=== PATIENT | male | born 1930 | race Caucasian/White ===

== ENCOUNTER 2018-05-10 18:02 | Emergency (ER) | payer MEDICARE, OTHER ==
[~2018-05-10] VITALS: Ht 195.6 cm; Wt 92.5 kg
--- NOTE | 2018-05-10 18:28 | ED EENT ---
History of Present Illness General Chief Complaint: Nasal Problems Stated Complaint: COUGH; RUNNY NOSE Nursing Triage Note: PT REPORTS HE HAS THE "SNIFFLES AND THE SHIVERS" SINCE YESTERDAY. DRAINIANGE IS CLEAR. NO OTHER COMPLAINTS. HE REPORTS HE IS NOT AWAER IF HE HAS HAD A FEVER BUT HE FEELS COLD. HAS NOT TRIED ANYTHING AT HOME. Source: patient Exam Limitations: no limitations History of Present Illness Date Seen by Provider: May 10, 2018 Time Seen by Provider: 18:23 Initial Comments Patient complains of sinus congestion, clear nasal discharge, chills and malaise for 2 days. He is concerned he is getting a "infection". He denies fevers. He did get a flu shot this year. Allergies and Home Medications Home Medications Azithromycin 250 Mg Tablet, 250 MG PO UD TAKE 2 TABLETS TODAY, THEN TAKE 1 TABLET DAILY FOR 4 MORE DAYS Prescribed by: YONY BYRNE on 05/10/18 1829 Patient Home Medication List Home Medication List Reviewed: Yes Review of Systems Review of Systems Constitutional: chills, malaise, weakness Eyes: No Symptoms Reported Ears: No Symptoms Reported Nose: congestion Throat: denies pain Respiratory: cough Cardiovascular: no symptoms reported Musculoskeletal: muscle pain Skin: no symptoms reported All Other Systems Reviewed Negative Unless Noted: Yes Past Uilubvm-Nnegjt-Tidlfu Hx Patient Social History Recent Foreign Travel: No Contact w/Someone Who Travel: No Recent Infectious Disease Expo: No Physical Abuse: No Sexual Abuse: No Mistreated: No Fear: No Past Medical History CABG Physical Exam Vital Signs Vital Signs - First Documented 05/10/18 18:16 Temp 99.5 Pulse 68 Resp 18 B/P (MAP) 167/80 (109) Pulse Ox 99 O2 Delivery Room Air Height, Weight, BMI Height: 6'5.00" Weight: 204lbs. oz. 92.906402jy; BMI Method:Stated General Appearance: WD/WN Eyes: bilateral eye normal inspection, bilateral eye PERRL, bilateral eye EOMI Ears: bilateral ear auricle normal, bilateral ear canal normal, bilateral ear TM normal Nose: discharge, sinus tenderness Mouth/Throat: normal mouth inspection, pharynx normal Neck: supple Cardiovascular: no murmur, irregularly irregular Respiratory: chest non-tender, lungs clear Gastrointestinal: non tender Neurologic/Psychiatric: alert, normal mood/affect Skin: normal color, warm/dry Progress/Results/Core Measures Results/Orders Vital Signs/I&O 05/10/18 18:16 Temp 99.5 Pulse 68 Resp 18 B/P (MAP) 167/80 (109) Pulse Ox 99 O2 Delivery Room Air Blood Pressure Mean: 109 Departure Impression Primary Impression: Sinusitis Disposition: 01 HOME, SELF-CARE Condition: Stable Departure-Patient Inst. Decision time for Depature: 18:27 Referrals: SHAHLA GARDNER MD (PCP/Family) Primary Care Physician Patient Instructions: Sinusitis in Adults Scripts Azithromycin (Zithromax) 250 Mg Tablet 250 MG PO UD, #6 TAB TAKE 2 TABLETS TODAY, THEN TAKE 1 TABLET DAILY FOR 4 MORE DAYS Prov: YONY BYRNE MD 05/10/18 YONY BYRNE MD May 10, 2018 18:28
[2018-05-10] MEDS ORDERED: AZIT250T PO (18:29)
[2018-05-10 18:39] VITALS: BP 167/80
== END 2018-05-10 18:37 | disposition short-term general hospital (02) ==
LOC: ER FS 18:05
DX: J32.9 Chronic sinusitis, unspecified (principal)
CPT/HCPCS: 99282

== ENCOUNTER 2018-07-29 15:58 | Emergency (ER) | payer MEDICARE, OTHER ==
[~2018-07-29] VITALS: Ht 195.6 cm; Wt 93.0 kg
[~2018-07-29 15:58] MED LIST: AZIT250T PO
--- OUTSIDE RECORDS SUMMARY | 2018-07-29 16:03 | XMS REPORT | Continuity of Care Document ---
Author Organization Unknown Address Unknown Allergies There is no data. Medications There is no data. Problems There is no data. Procedures There is no data. Results There is no data. Encounters ACCT No. Visit Date/Time Discharge Status Pt. Type Provider Facility Loc./Unit Complaint [id number] 07/11/2018 11:15:00 07/11/2018 23:59:59 [facility]
[2018-07-29] MEDS ORDERED: ATOR40TA70 (16:17)
[2018-07-29] MEDS ORDERED: XARELTO (16:17)
[2018-07-29 16:49] LABS: BASOPHILS % (AUTO) 1 % (0-10); EOSINOPHILS % (AUTO) 4 % (0-10); HEMATOCRIT 41 % (40-54); HEMOGLOBIN 13.8 G/DL (13.3-17.7); LYMPHOCYTES # (AUTO) 1.6 X 10^3 (1.0-4.0); LYMPHOCYTES % (AUTO) 41 % (12-44); MEAN CORPUSCULAR HEMOGLOBIN 33 PG (25-34); MEAN CORPUSCULAR HGB CONC 34 G/DL (32-36); MEAN CORPUSCULAR VOLUME 100 FL (80-99); MEAN PLATELET VOLUME 10.3 FL (7.4-10.4); MONOCYTES # (AUTO) 0.3 X 10^3 (0.0-1.0); MONOCYTES % (AUTO) 9 % (0-12); NEUTROPHILS # (AUTO) 1.7 X 10^3 (1.8-7.8); NEUTROPHILS % (AUTO) 45 % (42-75); PLATELET COUNT 101 10^3/uL (130-400); RED CELL DISTRIBUTION WIDTH 14.3 % (10.0-14.5); WHITE BLOOD COUNT 3.9 10^3/uL (4.3-11.0)
[2018-07-29 16:50] LABS: EOSINOPHILS # (AUTO) 0.2 10^3/uL (0.0-0.3)
--- NOTE | 2018-07-29 16:58 | Diagnostic Imaging Report ---
INDICATION: Indigestion. TECHNIQUE: Single-view chest at 4:34 p.m. CORRELATION STUDY: None. FINDINGS: Patient is post sternotomy. Cardiac enlargement with mild vascular congestion. Left-sided unipolar pacemaker tip near the cardiac apex inferiorly. Lung matthew appearing generally clear and without definitive consolidating infiltrate. No effusion or pneumothorax. Surgical clips project over the right lung apex. IMPRESSION: 1. Cardiac enlargement with component of mild vascular congestion. Dictated by: Dictated on workstation # [id number]
--- NOTE | 2018-07-29 17:02 | ED Chest Pain ---
General Chief Complaint: Chest Pain Stated Complaint: COLD SWEATS UPPER ABD/ CHEST PAIN THIS AM Nursing Triage Note: Had one episode of chest pain this morning at 0945 after eating biscuits and gravy. Pain was located in epigastric/sternal area and rated at 7/10. Pain lasted for 5 minutes. Has not had any pain since this morning. Has hx of 5 vessel bypass. Nursing Sepsis Screen: No Definite Risk Source: patient Exam Limitations: no limitations (RAMAKRISHNA HUTCHINSON DO) History of Present Illness Date Seen by Provider: July 29, 2018 Time Seen by Provider: 17:30 Initial Comments Patient is a 88-year-old male with history of CAD, CABG and pacemaker placement who presents with episodic mid abdominal pain this morning after eating biscuits gravies for breakfast. Patient states symptoms began 30 minutes after he finished eating. Reports dull aching pain in mid abdomen enlisting approximately 5 minutes associated with sweats. Pain did not radiate into his chest. Patient denies chest pain, arm shoulder neck or jaw pain. Symptoms were nonexertional. Patient then felt fatigued afterwards and went home and slept for 2 hours. Upon waking, symptoms resolved. However, the patient thought it might be a good idea to get checked out in the emergency department to see if he had a heart attack. 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: No Associated Symptoms: diaphoresis, fatigue, heartburn (RAMAKRISHNA HUTCHINSON DO) Allergies and Home Medications Allergies Coded Allergies: No Known Drug Allergies (Unverified , 07/29/18) Home Medications Azithromycin 250 Mg Tablet, 250 MG PO UD TAKE 2 TABLETS TODAY, THEN TAKE 1 TABLET DAILY FOR 4 MORE DAYS Prescribed by: YONY BYRNE on 05/10/18 5009 Patient Home Medication List Home Medication List Reviewed: Yes (RAMAKRISHNA HUTCHINSON DO) Review of Systems Review of Systems Constitutional: see HPI EENTM: See HPI Respiratory: See HPI Cardiovascular: See HPI Gastrointestinal: See HPI Genitourinary: See HPI Musculoskeletal: see HPI Skin: see HPI Psychiatric/Neurological: See HPI Endocrine: See HPI Hematologic/Lymphatic: See HPI (RAMAKRISHNA HUTCHINSON DO) Past Ihxwvpv-Xyfgka-Flwltu Hx Past Med/Social Hx: Reviewed Nursing Past Med/Soc Hx (RAMAKRISHNA HUTCHINSON DO) Patient Social History Alcohol Use: Denies Use Recreational Drug Use: No Smoking Status: Never a Smoker 2nd Hand Smoke Exposure: No Recent Foreign Travel: No Contact w/Someone Who Travel: No Recent Infectious Disease Expo: No Recent Hopitalizations: No Physical Abuse: No Sexual Abuse: No Mistreated: No Fear: No (RAMAKRISHNA HUTCHINSON DO) Immunizations Up To Date Tetanus Booster (TDap): Unknown (RAMAKRISHNA HUTCHINSON DO) Seasonal Allergies Seasonal Allergies: No (RAMAKRISHNA HUTCHINSON DO) Past Medical History Surgeries: Yes (5 vessel CABG; ) CABG, Pacemaker Respiratory: No Cardiac: Yes Atrial Fibrillation, High Cholesterol, Irregular Heartbeat Neurological: No Sexually Transmitted Disease: No HIV/AIDS: No Genitourinary: No Gastrointestinal: No Musculoskeletal: Yes Back Injury, Chronic Back Pain Endocrine: No HEENT: No Cancer: No Psychosocial: No Integumentary: No Blood Disorders: No (RAMAKRISHNA HUTCHINSON DO) Physical Exam Vital Signs Vital Signs - First Documented 07/29/18 07/29/18 16:05 19:16 Temp 97.7 Pulse 83 Resp 16 B/P (MAP) 151/99 (116) Pulse Ox 97 O2 Delivery Room Air (CAIT NOGUEIRA MD) Vital Signs Capillary Refill : Less Than 3 Seconds (RAMAKRISHNA HUTCHINSON DO) Height, Weight, BMI Height: 6'5.00" Weight: 205lbs. oz. 92.863077gd; BMI Method:Stated General Appearance: No Apparent Distress, WD/WN HEENT: PERRL/EOMI, Normal ENT Inspection, Pharynx Normal Neck: Full Range of Motion, Supple Respiratory: Lungs Clear, Normal Breath Sounds Gastrointestinal: Normal Bowel Sounds, Non Tender, Soft Extremity: Normal Capillary Refill, Non Tender; No Pedal Edema Neurologic/Psychiatric: Alert, No Motor/Sensory Deficits, Normal Mood/Affect ( RAMAKRISHNA HUTCHINSON DO) Focused Exam Sepsis Stage: Ruled Out (RAMAKRISHNA HUTCHINSON DO) Progress/Results/Core Measures Results/Orders Lab Results Laboratory Tests Test 07/29/18 16:18 07/29/18 18:26 Range/Units White Blood Count 3.9 L 4.3-11.0 10^3/uL Red Blood Count 4.12 L 4.35-5.85 10^6/uL Hemoglobin 13.8 13.3-17.7 G/DL Hematocrit 41 40-54 % Mean Corpuscular Volume 100 H 80-99 FL Mean Corpuscular Hemoglobin 33 25-34 PG Mean Corpuscular Hemoglobin Concent 34 32-36 G/DL Red Cell Distribution Width 14.3 10.0-14.5 % Platelet Count 101 L 130-400 10^3/uL Mean Platelet Volume 10.3 7.4-10.4 FL Neutrophils (%) (Auto) 45 42-75 % Lymphocytes (%) (Auto) 41 12-44 % Monocytes (%) (Auto) 9 0-12 % Eosinophils (%) (Auto) 4 0-10 % Basophils (%) (Auto) 1 0-10 % Neutrophils # (Auto) 1.7 L 1.8-7.8 X 10^3 Lymphocytes # (Auto) 1.6 1.0-4.0 X 10^3 Monocytes # (Auto) 0.3 0.0-1.0 X 10^3 Eosinophils # (Auto) 0.2 0.0-0.3 10^3/uL Basophils # (Auto) 0.0 0.0-0.1 10^3/uL Sodium Level 142 135-145 MMOL/L Potassium Level 4.5 3.6-5.0 MMOL/L Chloride Level 106 98-107 MMOL/L Carbon Dioxide Level 23 21-32 MMOL/L Anion Gap 13 5-14 MMOL/L Blood Urea Nitrogen 21 H 7-18 MG/DL Creatinine 1.21 0.60-1.30 MG/DL Estimat Glomerular Filtration Rate 57 BUN/Creatinine Ratio 17 Glucose Level 102 70-105 MG/DL Calcium Level 9.2 8.5-10.1 MG/DL Corrected Calcium 9.3 8.5-10.1 MG/DL Total Bilirubin 1.1 H 0.1-1.0 MG/DL Aspartate Amino Transf (AST/SGOT) 35 H 5-34 U/L Alanine Aminotransferase (ALT/SGPT) 22 0-55 U/L Alkaline Phosphatase 109 40-136 U/L Troponin T 31 H 27 H <=15 NG/L Pro-B-Type Natriuretic Peptide 1281.0 H <75.0 PG/ML Total Protein 6.8 6.4-8.2 GM/DL Albumin 3.9 3.2-4.5 GM/DL Lipase 12 8-78 U/L (CAIT NOGUEIRA MD) My Orders Orders - CAIT NOGUEIRA MD Troponin T (07/29/18 18:18) (CAIT NOGUEIRA MD) Medications Given in ED Current Medications Medications Dose Ordered Sig/Azar Route Start Time Stop Time Status Last Admin Dose Admin Furosemide 40 mg ONCE ONCE IVP 07/29/18 17:45 07/29/18 17:46 DC 07/29/18 17:57 40 MG (CAIT NOGUEIRA MD) Vital Signs/I&O 07/29/18 07/29/18 16:05 19:16 Temp 97.7 98.4 Pulse 83 72 Resp 16 18 B/P (MAP) 151/99 (116) 136/45 (75) Pulse Ox 97 97 O2 Delivery Room Air (CAIT NOGUEIRA MD) Blood Pressure Mean: 116 Progress Progress Note #1: Time: 18:00 Progress Note I assumed care of the patient from Dr. Hutchinson at shift change. Plan to get repeat Troponin at 2 hours which is now and if still negative then anticipate discharge to home with close follow up with clinic unless pt has new symptoms or concerns. Progress Note #2: Time: 19:00 Progress Note Repeat Troponin T is lower than the first one. Pt still without any further symptoms. Sounds more like he had indigestion from eating a large meal and with it being over 10 hours ago will have him recheck with pcp, Dr. Gardner, and see if she can get him rechecked with local cardiology. Counseled to not eat such large rich meals in the future. Return for worsening symptoms or if having more problems/concerns. (CAIT NOGUEIRA MD) Departure Communication (Admissions) EKG: Paced rhythm. Patient remains asymptomatic in the emergency department and normotensive. Labs reviewed. A&P elevated, with cardiomegaly on chest x-ray. Patient states that hypoxic and has clear breath sounds. Troponin is also marginally elevated. Patient recommended for further cardiac evaluation and treatment. Patient states he prefers to go home and wishes to follow up with his PCP and personal banking advisor as an outpatient. Lasix and aspirin given. Will repeat troponin in 2 hours with potential disposition home pending lab results and clinical symptoms. Care will be endorsed oncoming ERP at 1800. (RAMAKRISHNA HUTCHINSON DO) Impression Primary Impression: Abdominal pain Qualified Codes: R10.13 - Epigastric pain Additional Impression: Congestive heart failure Qualified Codes: I50.9 - Heart failure, unspecified Disposition: 01 HOME, SELF-CARE Condition: Stable Departure-Patient Inst. Decision time for Depature: 19:11 (CAIT NOGUEIRA MD) Referrals: SHAHLA GARDNER MD (PCP/Family) Primary Care Physician Patient Instructions: Gastritis (DC), High Blood Pressure (DC) Add. Discharge Instructions: Continue on your regular medicines. Follow up with Dr. Gardner in the clinic, This week or at next available appointment to discuss this episode of epigastric /upper abdominal pain. She may want you to get established with local Waste Recycler since Dr. Simmons is retiring at [place]. Return or seek medical care immediately if having worsening symptoms or more problems. All discharge instructions reviewed with patient and/or family. Voiced understanding. RAMAKRISHNA HUTCHINSON DO July 29, 2018 17:02 CAIT NOGUEIRA MD July 29, 2018 18:32
[2018-07-29 17:05] LABS: CREATININE SERUM 1.21 MG/DL (0.60-1.30); POTASSIUM 4.5 MMOL/L (3.6-5.0)
[2018-07-29 17:06] LABS: ALBUMIN 3.9 GM/DL (3.2-4.5); BILIRUBIN,TOTAL 1.1 MG/DL (0.1-1.0); CALCIUM 9.2 MG/DL (8.5-10.1); TOTAL PROTEIN 6.8 GM/DL (6.4-8.2)
[2018-07-29] MEDS ORDERED: FUROSEMIDE 40 MG/4 ML INJ (LASIX) IVP ONE (17:45)
[2018-07-29 19:16] VITALS: BP 136/45
== END 2018-07-29 19:16 | disposition home or self-care (01) ==
LOC: EDUNIT# 15:58 → ER FS 16:00
DX: R10.13 Epigastric pain (principal); I50.9 Heart failure, unspecified; I25.10 Atherosclerotic heart disease of native coronary artery without angina pectoris; I48.91 Unspecified atrial fibrillation; E78.00 Pure hypercholesterolemia, unspecified; Z95.1 Presence of aortocoronary bypass graft; Z95.0 Presence of cardiac pacemaker
CPT/HCPCS: 36415; 71045; 80053; 83690; 83880; 84484; 85025; 93005; 96374

== ENCOUNTER 2018-10-03 09:18 | Emergency (ER) | payer MEDICARE, OTHER ==
[~2018-10-03] VITALS: Ht 195.6 cm; Wt 97.5 kg
[~2018-10-03 09:18] MED LIST changes: +ATOR40TA70; +XARELTO
--- NOTE | 2018-10-03 10:06 | ED Lower Extremity ---
General Chief Complaint: Lower Extremity Stated Complaint: LT KNEE PAIN Nursing Triage Note: Pain started in left knee in the middle of the night. No known injury. Pain is worse with walking and rated at 7/10. Has not taken anything for pain. Also states his left big toe is red and has been for two days. Nursing Sepsis Screen: No Definite Risk History of Present Illness Date Seen by Provider: Oct 03, 2018 Time Seen by Provider: 09:55 Initial Comments Patient is an 88-year-old male who comes to the emergency department this morning complaining of pain in the left knee. He did not have any injury. He awoke this morning and states that he had onset of pain in the left knee which was initially worse then presently. He states the pain has improved since he has been walking. No fever or chills. He has been at baseline health with no other recent illness. He did not have this problem in the past. Allergies and Home Medications Allergies Coded Allergies: No Known Drug Allergies (Unverified , 07/29/18) Home Medications Azithromycin 250 Mg Tablet, 250 MG PO UD TAKE 2 TABLETS TODAY, THEN TAKE 1 TABLET DAILY FOR 4 MORE DAYS Prescribed by: YONY BYRNE on 05/10/18 1829 Patient Home Medication List Home Medication List Reviewed: Yes Review of Systems Constitutional: no symptoms reported Respiratory: no symptoms reported Cardiovascular: no symptoms reported Gastrointestinal: no symptoms reported Musculoskeletal: other (as documented above) Skin: no symptoms reported Past Dawldgz-Okkcff-Eqyylt Hx Patient Social History Alcohol Use: Denies Use Recreational Drug Use: No Smoking Status: Never a Smoker 2nd Hand Smoke Exposure: No Recent Foreign Travel: No Contact w/Someone Who Travel: No Recent Infectious Disease Expo: No Recent Hopitalizations: No Physical Abuse: No Sexual Abuse: No Mistreated: No Fear: No Immunizations Up To Date Tetanus Booster (TDap): Unknown Seasonal Allergies Seasonal Allergies: No Past Medical History Surgeries: Yes (5 vessel CABG; ) CABG, Pacemaker Respiratory: No Cardiac: Yes Atrial Fibrillation, High Cholesterol, Irregular Heartbeat Neurological: No Sexually Transmitted Disease: No HIV/AIDS: No Genitourinary: No Gastrointestinal: No Musculoskeletal: Yes Back Injury, Chronic Back Pain Endocrine: No HEENT: No Cancer: No Psychosocial: No Integumentary: No Blood Disorders: No Physical Exam Vital Signs Vital Signs - First Documented 10/03/18 09:23 Temp 97.5 Pulse 64 Resp 18 B/P (MAP) 118/71 (87) Pulse Ox 97 Capillary Refill : Less Than 3 Seconds Height, Weight, BMI Height: 6'5.00" Weight: 215lbs. oz. 97.282883eo; BMI Method:Stated General Appearance: WD/WN, no apparent distress HEENT: normal ENT inspection Neck: full range of motion Cardiovascular: regular rate, rhythm, systolic murmur Respiratory: lungs clear Knees: left knee other (no deformity of the left knee. No effusion. No warmth to touch. Patient has full free passive range of motion without pain. He does have crepitus palpable over the anterior aspect of the knee consistent with likely arthritis) Feet: left foot other (left great toenail is normal but the skin over the toe is mildly ecchymotic.) Progress/Results/Core Measures Results/Orders My Orders Orders - KANE MONK DO Foot 3 View Left (10/03/18 09:46) Knee 3 View Left (10/03/18 09:46) Acetaminophen Tablet (Tylenol Tablet) (10/03/18 10:45) Medications Given in ED Current Medications Medications Dose Ordered Sig/Azar Route Start Time Stop Time Status Last Admin Dose Admin Acetaminophen 1,000 mg ONCE ONCE PO 10/03/18 10:45 10/03/18 10:46 10/03/18 10:37 1,000 MG Vital Signs/I&O 10/03/18 10/03/18 09:23 10:36 Temp 97.5 97.5 Pulse 64 64 Resp 18 18 B/P (MAP) 118/71 (87) 118/71 (87) Pulse Ox 97 97 Blood Pressure Mean: 87 Progress Progress Note : Time: 09:55 Progress Note Patient is evaluated on arrival to his room. He does have complaints of pain of the left knee. The pain is specifically at the joint line on the lateral aspect of the knee. He did not have any trauma. Physical exam is fairly unremarkable other than some crepitus with passive range of motion which is most consistent with arthritis rather than any more acute pathology. No objective signs or symptoms of acute infectious process. The patient has a negative review of systems. He incidentally was noted to have some bruising over the left great toe as well. Patient states he is uncertain what happened and again denies any trauma. He has no pain over that toe. Examination of the toe does not real pain with palpation or manipulation. No local warmth to touch. Capillary refill is less than 2 seconds. The patient has 2+ dorsalis pedis pulses bilaterally with no edema. Plain film imaging is ordered of both the left foot and the left knee. 10:35: X-rays are reviewed and discussed with the patient. There are no acute findings. Only chronic changes. There is a small effusion in the area of concern of the left knee. Overall, there is no acute findings today suspicious for more acute pathology other than arthritis flare. Possibly friction injury to the left great toe. These are discussed with the patient. He is a poor candidate for NSAIDs because he takes Xarelto. He is encouraged to use Tylenol. Other possibilities such as developing cellulitis, gouty joint or septic joint are discussed with the patient and strict return precautions were also discussed. He does not have any questions prior to discharge. He is feeling improved. He will come back if he has any worsening symptoms. Departure Impression Primary Impression: Patellofemoral arthritis Additional Impression: Osteoarthritis Disposition: 01 HOME, SELF-CARE Condition: Improved Departure-Patient Inst. Referrals: SHAHLA GARDNER MD (PCP/Family) Primary Care Physician KANE MONK DO Oct 03, 2018 10:06
--- NOTE | 2018-10-03 10:22 | Diagnostic Imaging Report ---
Indication: Redness of the great toe, left foot. Time of exam: 9:47 AM 3 views of the left foot were obtained. The phalanges appear to be intact. There are degenerative changes at first MTP joint. Metatarsals are unremarkable. No fractures are seen. Midfoot and hindfoot are unremarkable apart from a plantar calcaneal spur. Impression: Chronic changes. No acute bony abnormality is detected. Dictated by: Dictated on workstation # [id number]
--- NOTE | 2018-10-03 10:22 | Diagnostic Imaging Report ---
INDICATION: Left knee pain. Time of exam 9:42 a.m. FINDINGS: Three views of the left knee were obtained. 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 Moderate patellofemoral and mild medial and lateral compartmental degenerative change. No fractures are seen. There may be a small amount of joint fluid present. IMPRESSION: Degenerative changes and small effusion. No acute bony abnormality is detected. Dictated by: Dictated on workstation # [id number]
[2018-10-03 10:36] VITALS: BP 118/71
[2018-10-03] MEDS ORDERED: ACETAMINOPHEN 500 MG TAB (TYLENOL) PO ONE (10:45)
--- OUTSIDE RECORDS SUMMARY | 2018-10-03 18:59 | XMS REPORT | Continuity of Care Document ---
Author Organization Unknown Address Unknown Allergies Active Description Code Type Severity Reaction Onset Reported/Identified Relationship to Patient Clinical Status Yes No Known Drug Allergies [id number] Drug Allergy Unknown N/A 07/29/2018 Medications There is no data. Problems Date Dx Coded Attending Type Code Diagnosis Diagnosed By 05/10/2018 YONY BYRNE MD, Ot J32.9 CHRONIC SINUSITIS, UNSPECIFIED 05/10/2018 YONY BYRNE MD Ot R05 COUGH 05/14/2018 YONY BYRNE MD, Ot J32.9 CHRONIC SINUSITIS, UNSPECIFIED 05/14/2018 YONY BYRNE MD Ot R05 COUGH 07/29/2018 CAIT NOGUEIRA MD Ot E78.00 PURE HYPERCHOLESTEROLEMIA, UNSPECIFIED 07/29/2018 CAIT NOGUEIRA MD Ot I25.10 ATHSCL HEART DISEASE OF [place] CORONARY 07/29/2018 CAIT NOGUEIRA MD Ot I48.91 UNSPECIFIED ATRIAL FIBRILLATION 07/29/2018 CAIT NOGUEIRA MD Ot I50.9 HEART FAILURE, UNSPECIFIED 07/29/2018 CAIT NOGUEIRA MD Ot R10.13 EPIGASTRIC PAIN 07/29/2018 CAIT NOGUEIRA MD Ot Z95.0 PRESENCE OF CARDIAC PACEMAKER 07/29/2018 CAIT NOGUEIRA MD Ot Z95.1 PRESENCE OF AORTOCORONARY BYPASS GRAFT 07/31/2018 CAIT NOGUEIRA MD Ot E78.00 PURE HYPERCHOLESTEROLEMIA, UNSPECIFIED 07/31/2018 CAIT NOGUEIRA MD Ot I25.10 ATHSCL HEART DISEASE OF [place] CORONARY 07/31/2018 CAIT NOGUEIRA MD Ot I48.91 UNSPECIFIED ATRIAL FIBRILLATION 07/31/2018 CAIT NOGUEIRA MD Ot I50.9 HEART FAILURE, UNSPECIFIED 07/31/2018 CAIT NOGUEIRA MD Ot R10.13 EPIGASTRIC PAIN 07/31/2018 CAIT NOGUEIRA MD Ot Z95.0 PRESENCE OF CARDIAC PACEMAKER 07/31/2018 CAIT NOGUEIRA MD, Ot Z95.1 PRESENCE OF AORTOCORONARY BYPASS GRAFT 08/04/2018 CAIT NOGUEIRA MD, Ot E78.00 PURE HYPERCHOLESTEROLEMIA, UNSPECIFIED 08/04/2018 CAIT NOGUEIRA MD, Ot I25.10 ATHSCL HEART DISEASE OF [place] CORONARY 08/04/2018 CAIT NOGUEIRA MD, Ot I48.91 UNSPECIFIED ATRIAL FIBRILLATION 08/04/2018 CAIT NOGUEIRA MD, Ot I50.9 HEART FAILURE, UNSPECIFIED 08/04/2018 CAIT NOGUEIRA MD, Ot R10.13 EPIGASTRIC PAIN 08/04/2018 CAIT NOGUEIRA MD, Ot Z95.0 PRESENCE OF CARDIAC PACEMAKER 08/04/2018 CAIT NOGUEIRA MD, Ot Z95.1 PRESENCE OF AORTOCORONARY BYPASS GRAFT Procedures There is no data. Results Test Result Range Complete blood count (CBC) with automated white blood cell (WBC) differential - 07/29/18 16:18 Blood leukocytes automated count (number/volume) 3.9 10*3/uL 4.3-11.0 Blood erythrocytes automated count (number/volume) 4.12 10*6/uL 4.35-5.85 Venous blood hemoglobin measurement (mass/volume) 13.8 g/dL 13.3-17.7 Blood hematocrit (volume fraction) 41 % 40-54 Automated erythrocyte mean corpuscular volume 100 [foz_us] 80-99 Automated erythrocyte mean corpuscular hemoglobin (mass per erythrocyte) 33 pg 25-34 Automated erythrocyte mean corpuscular hemoglobin concentration measurement (mass/volume) 34 g/dL 32-36 Automated erythrocyte distribution width ratio 14.3 % 10.0- 14.5 Automated blood platelet count (count/volume) 101 10*3/uL 130-400 Automated blood platelet mean volume measurement 10.3 [foz_us] 7.4-10.4 Automated blood neutrophils/100 leukocytes 45 % 42-75 Automated blood lymphocytes/100 leukocytes 41 % 12-44 Blood monocytes/100 leukocytes 9 % 0-12 Automated blood eosinophils/100 leukocytes 4 % 0-10 Automated blood basophils/100 leukocytes 1 % 0-10 Blood neutrophils automated count (number/volume) 1.7 10*3 1.8-7.8 Blood lymphocytes automated count (number/volume) 1.6 10*3 1.0-4.0 Blood monocytes automated count (number/volume) 0.3 10*3 0.0- 1.0 Automated eosinophil count 0.2 10*3/uL 0.0-0.3 Automated blood basophil count (count/volume) 0.0 10*3/uL 0.0-0.1 Comprehensive metabolic panel - 07/29/18 16:18 Serum or plasma sodium measurement (moles/volume) 142 mmol/L 135-145 Serum or plasma potassium measurement (moles/volume) 4.5 mmol/L 3.6-5.0 Serum or plasma chloride measurement (moles/volume) 106 mmol/L 98-107 Carbon dioxide 23 mmol/L 21-32 Serum or plasma anion gap determination (moles/volume) 13 mmol/L 5-14 Serum or plasma urea nitrogen measurement (mass/volume) 21 mg/dL 7-18 Serum or plasma creatinine measurement (mass/volume) 1.21 mg/dL 0.60-1.30 Serum or plasma urea nitrogen/creatinine mass ratio 17 NRG Serum or plasma creatinine measurement with calculation of estimated glomerular filtration rate 57 NRG Serum or plasma glucose measurement (mass/volume) 102 mg/dL 70-105 Serum or plasma calcium measurement (mass/volume) 9.2 mg/dL 8.5-10.1 Serum or plasma total bilirubin measurement (mass/volume) 1.1 mg/dL 0.1-1.0 Serum or plasma alkaline phosphatase measurement (enzymatic activity/volume) 109 U/L 40-136 Serum or plasma aspartate aminotransferase measurement (enzymatic activity/volume) 35 U/L 5-34 Serum or plasma alanine aminotransferase measurement (enzymatic activity/volume) 22 U/L 0-55 Serum or plasma protein measurement (mass/volume) 6.8 g/dL 6.4-8.2 Serum or plasma albumin measurement (mass/volume) 3.9 g/dL 3.2-4.5 CALCIUM CORRECTED 9.3 mg/dL 8.5-10.1 TROPONIN T - 07/29/18 16:18 TROPONIN T 31 % <=15 PROBNP FS - 07/29/18 16:18 PROBNP FS 1281.0 pg/mL <75.0 Lipase - 07/29/18 16:18 Lipase 12 U/L 8-78 TROPONIN T - 07/29/18 18:26 TROPONIN T 27 % <=15 Encounters ACCT No. Visit Date/Time Discharge Status Pt. Type Provider Facility Loc./Unit Complaint [id number] 08/29/2018 09:00:00 08/29/2018 23:59:59 [facility] [id number] 10/03/2018 09:19:00 10/03/2018 10:44:00 DIS Emergency KANE MONK DO [facility] FS LT KNEE PAIN [id number] 07/29/2018 16:00:00 07/29/2018 19:16:00 DIS Emergency JERO ROWLAND, CAIT Boo [facility] FS COLD SWEATS UPPER ABD/ CHEST PAIN THIS AM [id number] 05/10/2018 18:05:00 05/10/2018 18:37:00 DIS Emergency CATY ROWLAND, YONY Nino [facility] FS COUGH; RUNNY NOSE
== END 2018-10-03 10:44 | disposition home or self-care (01) ==
LOC: EDUNIT# 09:18 → ER FS 09:19
DX: M17.12 Unilateral primary osteoarthritis, left knee (principal); E78.00 Pure hypercholesterolemia, unspecified; I48.91 Unspecified atrial fibrillation; Z95.0 Presence of cardiac pacemaker; Z95.1 Presence of aortocoronary bypass graft
CPT/HCPCS: 73562; 73630

== ENCOUNTER 2018-11-20 10:18 | Emergency (ER) | payer MEDICARE, OTHER ==
[~2018-11-20] VITALS: Ht 196.8 cm; Wt 97.5 kg
--- NOTE | 2018-11-20 10:43 | ED General ---
General Chief Complaint: General Problems/Pain Stated Complaint: BLEEDING IN MOUTH Source of Information: Patient History of Present Illness Date Seen by Provider: Nov 20, 2018 Time Seen by Provider: 10:42 Initial Comments 88-year-old male presenting with complaints of sores that will not heal on his left forearm and right elbow. He also has a spot on side of his tongue that he keeps catching on his teeth. He has a jagged tooth on the right side that is broken. This is been that way for a long time but he is concerned that he might have cancer. He denies having any pain. He has no fever or chills. He has had these for a while but keeps forgetting to bring the month or come be seen about thumb. He happened to be in town and was thinking about them so he came to be seen. Dr. Gardner was not in the office so he came to the emergency department. He wanted to see about having them cut out and checked for cancer. Allergies and Home Medications Patient Home Medication List Home Medication List Reviewed: Yes Review of Systems Review of Systems Constitutional: see HPI EENTM: see HPI Respiratory: no symptoms reported Cardiovascular: no symptoms reported Gastrointestinal: no symptoms reported Genitourinary: no symptoms reported Musculoskeletal: no symptoms reported Skin: see HPI Past Cxsarnk-Hnqhoo-Gnncat Hx Past Med/Social Hx: Reviewed Nursing Past Med/Soc Hx Patient Social History Recent Foreign Travel: No Contact w/Someone Who Travel: No Physical Exam Vital Signs Vital Signs - First Documented 11/20/18 10:35 Temp 97.0 Pulse 85 Resp 16 B/P (MAP) 145/98 (114) Pulse Ox 100 O2 Delivery Room Air Capillary Refill : Height, Weight, BMI Height: '" Weight: lbs. oz. kg; BMI Method: General Appearance: No Apparent Distress, WD/WN HEENT: PERRL/EOMI, Other (bruising and hematoma to the right underside of the tongue where it has scraped against his teeth) Neck: Full Range of Motion, Normal Inspection, Non Tender, Supple Respiratory: Chest Non Tender, Lungs Clear, Normal Breath Sounds Cardiovascular: Regular Rate, Rhythm Extremity: Normal Capillary Refill, Normal Range of Motion, Non Tender Neurologic/Psychiatric: Alert, Oriented x3 Skin: Warm/Dry, Other (tanned skin. small 3 mm diameter bleeding lesion on left mid forearm without surrounding erythema or fluctuance. indurated swollen area on right elbow without fluctuance) Progress/Results/Core Measures Suspected Sepsis SIRS Temperature: Pulse: Respiratory Rate: Blood Pressure / Mean: Results/Orders Vital Signs/I&O 11/20/18 10:35 Temp 97.0 Pulse 85 Resp 16 B/P (MAP) 145/98 (114) Pulse Ox 100 O2 Delivery Room Air Capillary Refill : Progress Note : Progress Note Counseled patient that to be able to perform a biopsy to check for cancer or would need to be done through the clinic so he can follow up with somebody about the results of the pathology. When he was informed of this he was interested in going to the clinic. The clinic was contacted and they had an appointment to be able to see him at 11:20 AM. He was discharged shortly before 11 AM and sent to the clinic so he can be seen. Departure Impression Primary Impression: Non-healing skin lesion Disposition: HOME, SELF-CARE Condition: Stable Departure-Patient Inst. Decision time for Depature: 11:06 Referrals: SHAHLA GARDNER MD (PCP/Family) Primary Care Physician Patient Instructions: Skin Lesion Removal (DC) Add. Discharge Instructions: Check with clinic to see if they can do a biopsy of the spots on your arms to check for skin cancer or see what is causing them to not heal All discharge instructions reviewed with patient and/or family. Voiced understanding. CAIT NOGUEIRA MD Nov 20, 2018 10:42
[2018-11-20 11:10] VITALS: BP 145/98
== END 2018-11-20 11:10 | disposition home or self-care (01) ==
LOC: ER FS 10:21 → MERGE 10:21 → ER FS 11:10
DX: L98.9 Disorder of the skin and subcutaneous tissue, unspecified (principal)
CPT/HCPCS: 99281

== ENCOUNTER → 2018-12-30 | Outpatient (CLI) | payer MEDICARE, OTHER ==
--- NOTE | 2018-12-30 14:08 | Diagnostic Imaging Report ---
INDICATION: Pain. COMPARISON: None available. TECHNIQUE: Four radiographs of the right femur are dated 12/30/2018. FINDINGS: Surgical clips are present within the soft tissues medial to the right femur. No acute fracture or dislocation. No destructive osseous process. Moderate medial and lateral joint space narrowing of the knee is identified with associated tricompartmental osteophytosis. 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 Mild degenerative changes of the right hip. The right femoral head maintains normal shape and contour. Moderate scattered vascular calcifications. IMPRESSION: No acute osseous abnormality with scattered degenerative changes, greatest involving the right knee. 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 Additional post surgical and chronic findings as above. Dictated by: Dictated on workstation # [id number]
== END ==
LOC: RAD FS 13:48
PROVIDERS: ATTEND Nurse Practitioner Family
DX: M17.11 Unilateral primary osteoarthritis, right knee (principal); M79.651 Pain in right thigh
CPT/HCPCS: 73552

== ENCOUNTER → 2019-01-09 | Outpatient (CLI) | payer MEDICARE, OTHER ==
[2019-01-09 10:07] LABS: BUN/CREATININE RATIO 19; CREATININE SERUM 1.13 MG/DL (0.60-1.30); GFR ESTIMATED > 60
== END ==
LOC: LAB FS 09:11
PROVIDERS: ATTEND Family Medicine
DX: M79.89 Other specified soft tissue disorders (principal)
CPT/HCPCS: 36415; 82565; 84520

== ENCOUNTER → 2019-01-09 | Outpatient (CLI) | payer MEDICARE, OTHER ==
[~2019-01-09] MED LIST changes: +CATHETER FLUSH 10 ML SYR IV PRN; +HOLD METFORMIN - RECEIVED CONTRAST 20 ML VIAL IV SCH; +IOHEXOL 350 MG/ML 100 ML (OMNIPAQUE 350) VIAL IV ONE; +NS 100 ML (IVPB) BAG IV ONE
--- NOTE | 2019-01-09 12:38 | Diagnostic Imaging Report ---
PROCEDURE: CT right lower extremity with contrast. TECHNIQUE: Multiple contiguous axial CT images of the right extremity were obtained after intravenous administration of iodinated contrast. Auto Exposure Controls were utilized during the CT exam to meet ALARA standards for radiation dose reduction. INDICATION: Thigh swelling for five days. COMPARISON: Radiographs from 12/30/2018. FINDINGS: No acute fracture is seen in the imaged portions of the right femur. Alignment is normal. There are moderate degenerative changes in the right acromioclavicular joint. No cortical erosions are seen. No significant periosteal reaction is seen. There is a rim-enhancing heterogeneous fluid collection which abuts the medial cortex of the right mid femur, measuring up to 4.5 cm transverse and 4.8 cm AP in greatest dimensions. This measures up to 13.5 cm craniocaudal. This is closely associated with the vastus intermedius and appears to underlie the vastus medialis. Also within the vastus intermedius anteriorly, there appears to be a second rim-enhancing fluid collection which measures up to 1.5 x 1.1 cm on axial imaging and 15.5 cm craniocaudal. No other rim-enhancing soft tissue fluid collections are seen in the right thigh. There is moderate deep fascial edema in the anterior compartment of the right thigh. No soft tissue gas is seen. There is mild subcutaneous edema about the right thigh. There is focal atrophy of the biceps femoris. Calcific atherosclerosis is seen. Multiple clips are noted in the superficial soft tissues medially. There is diverticulosis of the sigmoid colon without diverticulitis. The urinary bladder is decompressed. No free fluid is seen in the pelvis. There is a small right knee joint effusion. IMPRESSION: 1. Heterogeneous rim-enhancing fluid collection abutting the right femur predominantly involving the medial aspect of the vastus intermedius. This may represent a hematoma or abscess. A second smaller, but equally long, rim-enhancing fluid collection is seen in the anterior vastus intermedius as well. 2. Moderate deep soft tissue edema in the right thigh and mild superficial soft tissue edema. No soft tissue gas is seen. 3. No cortical erosion or periosteal reaction to suggest osteomyelitis. Dictated by: Dictated on workstation # [id number]
== END ==
LOC: RAD FS 09:13
PROVIDERS: ATTEND Nurse Practitioner Family
DX: M79.89 Other specified soft tissue disorders (principal)
CPT/HCPCS: 73701

== ENCOUNTER → 2019-04-07 | Outpatient (CLI) | payer MEDICARE, OTHER ==
[2019-04-07 11:23] LABS: HEMATOCRIT 43 % (40-54); HEMOGLOBIN 14.2 G/DL (13.3-17.7); MEAN CORPUSCULAR HEMOGLOBIN 33 PG (25-34); MEAN CORPUSCULAR HGB CONC 33 G/DL (32-36); MEAN CORPUSCULAR VOLUME 101 FL (80-99); RED CELL DISTRIBUTION WIDTH 13.3 % (10.0-14.5); WHITE BLOOD COUNT 6.2 10^3/uL (4.3-11.0)
[2019-04-07 11:24] LABS: BASOPHILS % (AUTO) 1 % (0-10); EOSINOPHILS # (AUTO) 0.5 10^3/uL (0.0-0.3); EOSINOPHILS % (AUTO) 7 % (0-10); LYMPHOCYTES # (AUTO) 1.7 X 10^3 (1.0-4.0); LYMPHOCYTES % (AUTO) 27 % (12-44); MEAN PLATELET VOLUME 10.4 FL (7.4-10.4); MONOCYTES # (AUTO) 0.5 X 10^3 (0.0-1.0); MONOCYTES % (AUTO) 8 % (0-12); NEUTROPHILS # (AUTO) 3.5 X 10^3 (1.8-7.8); NEUTROPHILS % (AUTO) 57 % (42-75); PLATELET COUNT 130 10^3/uL (130-400)
[2019-04-07 11:55] LABS: POTASSIUM 3.8 MMOL/L (3.6-5.0)
[2019-04-07 11:56] LABS: ALBUMIN 4.2 GM/DL (3.2-4.5); BILIRUBIN,TOTAL 1.1 MG/DL (0.1-1.0); CALCIUM 9.9 MG/DL (8.5-10.1); CREATININE SERUM 1.25 MG/DL (0.60-1.30); TOTAL PROTEIN 7.3 GM/DL (6.4-8.2)
--- NOTE | 2019-04-07 12:56 | Diagnostic Imaging Report ---
PROCEDURE: CT chest with contrast only. TECHNIQUE: Multiple contiguous axial images were obtained through the chest after administration of intravenous contrast. Auto Exposure Controls were utilized during the CT exam to meet ALARA standards for radiation dose reduction. INDICATION: Lump in the upper right chest/clavicle region. FINDINGS: There appears to be a bony destructive process involving the medial right clavicle. A portion of the medial right clavicle is no longer present. There is a fluid collection at the expected location with some peripheral enhancement measuring 6.2 x 3.1 cm. No gas within the collection is identified. There are changes of median sternotomy. The patient has a left chest wall cardiac pacemaker. No pericardial or pleural fluid is identified. The heart is enlarged. No definite axillary, hilar, or mediastinal lymphadenopathy is detected. No pulmonary infiltrates, nodules, or masses are seen. The upper abdomen does show some renal cortical scarring bilaterally. There are diffuse degenerative changes throughout the thoracic spine. IMPRESSION: The medial right clavicle is gone and replaced by an enhancing fluid collection. This could be on an infectious/inflammatory basis with osteomyelitis of the right clavicle and associated soft tissue abscess. No other significant abnormality is identified. Dictated by: Dictated on workstation # [id number]
--- NOTE | 2019-04-07 13:23 | Diagnostic Imaging Report ---
INDICATION: Pain. FINDINGS: There is ill-definition of the medial third of the right clavicle. There does appear to be some swelling over the right supraclavicular region. The heart size is upper limits. No gross overdistention of the vascularity. The lungs are clear. The sternal wires are midline. The pacemaker device is intact. IMPRESSION: 1. The ill-defined medial third right clavicle with likely regional swelling is better characterized on the separately performed CT. 2. Upper limits heart size without overt failure pattern or mariela pneumonia. Dictated by: Dictated on workstation # [id number]
== END ==
LOC: LAB FS 10:58
PROVIDERS: ATTEND Family Medicine
DX: E78.5 Hyperlipidemia, unspecified (principal); R22.2 Localized swelling, mass and lump, trunk; K52.9 Noninfective gastroenteritis and colitis, unspecified
CPT/HCPCS: 36415; 71046; 71260; 80053; 80061; 82274; 85025; 87015; 87045; 87046; 87324; 87449; 87899

== ENCOUNTER 2019-04-24 05:36 | Outpatient (CLI) | payer MEDICARE, OTHER ==
[~2019-04-24] VITALS: Ht 195.6 cm; Wt 100.0 kg
[~2019-04-24 05:36] MED LIST changes: -CATHETER FLUSH 10 ML SYR IV PRN; -HOLD METFORMIN - RECEIVED CONTRAST 20 ML VIAL IV SCH; -IOHEXOL 350 MG/ML 100 ML (OMNIPAQUE 350) VIAL IV ONE; -NS 100 ML (IVPB) BAG IV ONE
[2019-04-24] MEDS ORDERED: RIVA20TA PO (13:01)
[2019-04-24] MEDS ORDERED: MULT-1104 PO (13:01)
[2019-04-24] MEDS ORDERED: ZINC50TA58 PO (13:01)
[2019-04-24] MEDS ORDERED: ASPI-586 PO (13:01)
[2019-04-24] MEDS ORDERED: CALC-823 PO (13:02)
[2019-04-28] MEDS ORDERED: ATOR10TA66 PO (10:36)
== END 2019-04-24 13:08 | disposition home or self-care (01) ==
LOC: PREOP 05:36
PROVIDERS: ATTEND Surgery
DX: Z01.818 Encounter for other preprocedural examination (principal)

== ENCOUNTER 2019-05-09 10:26 | Emergency (ER) | payer MEDICARE, OTHER ==
[~2019-05-09] VITALS: Ht 196 cm; Wt 100.2 kg
[~2019-05-09 10:26] MED LIST changes: +ASPI-586 PO; +ATOR10TA66 PO; +CALC-823 PO; +MULT-1104 PO; +RIVA20TA PO; +ZINC50TA58 PO
--- NOTE | 2019-05-09 10:41 | ED EENT ---
History of Present Illness General Chief Complaint: Ear Problems Stated Complaint: LT EAR PAIN Source: patient History of Present Illness Date Seen by Provider: May 09, 2019 Time Seen by Provider: 10:41 Initial Comments 88-year-old male presenting with 3 months worth of pressure and fluid in his left ear. He has been able to suck fluid from his ear and sinuses into his throat. When he does that it is salty drainage and looks like mucus. He denies any fever or chills. He has not followed up through the clinic about that. Nothing is worse about it today, he just had some spare time and came to the emergency department. He has tried some ocap-[id number] sinus spray with little to no improvement. Allergies and Home Medications Allergies Coded Allergies: No Known Drug Allergies (Unverified , 07/29/18) Home Medications Aspirin 81 Mg Tablet.dr, 81 MG PO DAILY, (Reported) Atorvastatin Calcium 10 Mg Tablet, 10 MG PO HS, (Reported) Calcium Carbonate 500 Mg Tablet, 500 MG PO DAILY, (Reported) Multivit-Min/Folic/Vit K/Lycop 1 Each Tablet, 1 EACH PO DAILY, (Reported) Rivaroxaban 20 Mg Tablet, 20 MG PO DAILY, (Reported) Zinc 50 Mg Tablet, 50 MG PO DAILY, (Reported) Patient Home Medication List Home Medication List Reviewed: Yes Review of Systems Review of Systems Constitutional: No chills, No dizziness, No fever, No malaise Eyes: No Symptoms Reported Ears: See HPI; Denies Tinnitus, Denies Bloody Discharge; Clear Discharge (when he sucks it into his throat); Denies Purulent Discharge, Denies Serosanguinous Discharge Nose: no symptoms reported Mouth: no symptoms reported Throat: no symptoms reported Respiratory: no symptoms reported Cardiovascular: no symptoms reported Gastrointestinal: no symptoms reported Musculoskeletal: no symptoms reported Skin: no symptoms reported Neurological: No Symptoms Reported Past Bubzdge-Quefzl-Jzkiwn Hx Past Med/Social Hx: Reviewed Nursing Past Med/Soc Hx Patient Social History Alcohol Use: Denies Use Recreational Drug Use: No 2nd Hand Smoke Exposure: No Recent Hopitalizations: No Immunizations Up To Date Tetanus Booster (TDap): Unknown Date of Influenza Vaccine: Dec 16, 2018 Seasonal Allergies Seasonal Allergies: No Past Medical History Surgeries: Yes (shoulder, back sx, toes amputated) CABG Respiratory: No Cardiac: Yes Atrial Fibrillation Neurological: No Sexually Transmitted Disease: No HIV/AIDS: No Genitourinary: No Gastrointestinal: Yes Chronic Diarrhea Musculoskeletal: Yes Arthritis Endocrine: No HEENT: No Cancer: No Psychosocial: No Integumentary: No Blood Disorders: No Physical Exam Vital Signs Vital Signs - First Documented 05/09/19 10:37 Temp 36.2 Pulse 87 Resp 16 B/P (MAP) 131/91 (104) Pulse Ox 87 Height, Weight, BMI Height: 6'5.50" Weight: 215lbs. 0oz. 97.727421lj; 26.13 BMI Method:Stated General Appearance: WD/WN, no apparent distress Eyes: bilateral eye PERRL, bilateral eye EOMI Ears: left ear other (clear effusion present filling over half of his middle ear); bilateral ear auricle normal, bilateral ear canal normal, bilateral ear TM normal Mouth/Throat: normal mouth inspection, pharynx normal Neck: non-tender, full range of motion, supple, normal inspection Cardiovascular: normal peripheral pulses, regular rate, rhythm Respiratory: chest non-tender, lungs clear, normal breath sounds Neurologic/Psychiatric: alert, normal mood/affect, oriented x 3 Skin: normal color, warm/dry Progress/Results/Core Measures Results/Orders Vital Signs/I&O 05/09/19 10:37 Temp 36.2 Pulse 87 Resp 16 B/P (MAP) 131/91 (104) Pulse Ox 87 Progress Progress Note : Progress Note treat with z pack for possible sinus infection and ear infection. nasal steroid spray and encourage to follow up with ENT for definitive evaluation Departure Impression Primary Impression: Chronic serous otitis media of left ear Disposition: 01 HOME, SELF-CARE Condition: Stable Departure-Patient Inst. Decision time for Depature: 10:55 Referrals: SELENA RAJPUT MD, KATRINA M MD (PCP/Family) Primary Care Physician Patient Instructions: Serous Otitis Media (DC) Add. Discharge Instructions: Use the steroid nasal spray to try and get your ear to drain better. Follow up with Dr. Rajput or one of his associates at his clinic to further evaluate your fluid in the ear and sinuses. All discharge instructions reviewed with patient and/or family. Voiced understanding. Scripts Azithromycin (Azithromycin) 250 Mg Tablet 250 MG PO UD for 5 Days, #6 TAB 0 Refills TAKE 2 TABLETS ON DAY ONE THEN TAKE 1 TABLET DAILY FOR FOUR MORE DAYS Prov: CAIT NOGUEIRA MD 05/09/19 Fluticasone Propionate (Flonase Allergy Relief) 9.9 Ml [place].susp 2 SPRAY NS DAILY for 30 Days, #1 EACH 0 Refills 2 SPRAYS PER NOSTRIL DAILY X 2 DAYS THEN 1 SPRAY DAILY Prov: CAIT NOGUEIRA MD 05/09/19 CAIT NOGUEIRA MD May 09, 2019 10:41
[2019-05-09] MEDS ORDERED: AZIT250T12 PO (10:57)
[2019-05-09] MEDS ORDERED: FLUT9.9S NS (10:57)
[2019-05-09 10:59] VITALS: BP 131/91
== END 2019-05-09 10:59 | disposition home or self-care (01) ==
LOC: EDUNIT# 10:26 → ER FS 10:27
DX: H65.492 Other chronic nonsuppurative otitis media, left ear (principal); I48.91 Unspecified atrial fibrillation; Z79.82 Long term (current) use of aspirin; Z79.01 Long term (current) use of anticoagulants; Z95.1 Presence of aortocoronary bypass graft
CPT/HCPCS: 99282

== ENCOUNTER 2019-05-21 16:26 | Outpatient (RCR) | payer MEDICARE, OTHER ==
[~2019-05-21 16:26] MED LIST changes: +AZIT250T12 PO; +FLUT9.9S NS
== END 2019-08-19 | disposition home or self-care (01) ==
LOC: LAB 16:26
PROVIDERS: ATTEND Surgery
DX: K63.89 Other specified diseases of intestine (principal)
CPT/HCPCS: 87015; 87045; 87046; 87899

== ENCOUNTER 2020-02-28 11:45 | Emergency (ER) | payer MEDICARE, OTHER ==
--- NOTE | 2020-02-28 12:36 | Diagnostic Imaging Report ---
CHEST 1 VIEW AP/PA ONLY Indication: Shortness of breath and wheezing. Comparison: 04/07/2019 Findings: Unchanged cardiomegaly with left pectoral transvenous pacemaker. Chronic central vascular redistribution. No pulmonary consolidation or mass. Posterior lower lobes are poorly evaluated by portable radiography. Mild interlobular septal thickening may be present. Trace bilateral pleural effusions. IMPRESSION: Imaging features raise possibility of mild pulmonary edema with trace bilateral pleural effusions. Dictated by: Dictated on workstation # [id number]
--- NOTE | 2020-02-28 12:48 | ED Respiratory ---
General Chief Complaint: Respiratory Problems Stated Complaint: SOA Nursing Triage Note: patients presents with leg swelling, sob, cough, chest pain and wheezing. Denies temp. Is coughing up brown sputum. Source: patient History of Present Illness Date Seen by Provider: Feb 28, 2020 Time Seen by Provider: 12:44 Initial Comments 89-year-old male presenting with complaints of shortness of breath and leg swelling that has been getting worse over the last few weeks. He has noticed that the swelling in his legs goes down overnight. He denies any fever or chills. He has been coughing up some brown colored sputum. He has not been able to see his regular provider, Dr. Shahla Gardner, because of her office being closed due to COVID. He was concerned with the swelling and shortness of breath not improving over the last few weeks so he decided he needed to be seen. Since he had some time after yazidism this morning he decided to stop here at the emergency department. He has had some chest tightness at times as well. Allergies and Home Medications Allergies Coded Allergies: No Known Drug Allergies (Unverified , 07/29/18) Home Medications Aspirin 81 Mg Tablet.dr, 81 MG PO DAILY, (Reported) Atorvastatin Calcium 10 Mg Tablet, 10 MG PO HS, (Reported) Azithromycin 250 Mg Tablet, 250 MG PO UD TAKE 2 TABLETS ON DAY ONE THEN TAKE 1 TABLET DAILY FOR FOUR MORE DAYS Prescribed by: CAIT NOGUEIRA on 05/09/19 1057 Calcium Carbonate 500 Mg Tablet, 500 MG PO DAILY, (Reported) Fluticasone Propionate 9.9 Ml [place].susp, 2 SPRAY NS DAILY 2 SPRAYS PER NOSTRIL DAILY X 2 DAYS THEN 1 SPRAY DAILY Prescribed by: CAIT NOGUEIRA on 05/09/19 1057 Furosemide 20 Mg Tablet, 20 MG PO DAILY Prescribed by: CAIT NOGUEIRA on 02/28/20 1410 Multivit-Min/Folic/Vit K/Lycop 1 Each Tablet, 1 EACH PO DAILY, (Reported) Potassium Chloride 10 Meq Capsule.er, 10 MEQ PO DAILY Prescribed by: CAIT NOGUEIRA on 02/28/20 1410 Rivaroxaban 20 Mg Tablet, 20 MG PO DAILY, (Reported) Zinc 50 Mg Tablet, 50 MG PO DAILY, (Reported) Patient Home Medication List Home Medication List Reviewed: Yes Review of Systems Review of Systems Constitutional: No chills, No dizziness, No fever EENTM: no symptoms reported Respiratory: cough; No hemoptysis, No orthopnea; short of breath; No stridor; wheezing Cardiovascular: chest pain (tightness), edema Gastrointestinal: No nausea, No vomiting Genitourinary: no symptoms reported Musculoskeletal: no symptoms reported Skin: no symptoms reported Psychiatric/Neurological: No Symptoms Reported Hematologic/Lymphatic: Easy Bleeding (taking xarelto), Easy Bruising (taking xarelto) Past Qmherjt-Aeenvl-Stosri Hx Past Med/Social Hx: Reviewed Nursing Past Med/Soc Hx Patient Social History Alcohol Use: Denies Use Recreational Drug Use: No Smoking Status: Never a Smoker 2nd Hand Smoke Exposure: No Recent Foreign Travel: No Contact w/Someone Who Travel: No Recent Infectious Disease Expo: No Recent Hopitalizations: No Physical Abuse: No Sexual Abuse: No Mistreated: No Fear: No Immunizations Up To Date Tetanus Booster (TDap): Unknown Date of Influenza Vaccine: Dec 16, 2018 Seasonal Allergies Seasonal Allergies: No Past Medical History Surgeries: Yes (shoulder, back sx, toes amputated) CABG, Pacemaker Respiratory: No Cardiac: Yes Atrial Fibrillation Neurological: No Sexually Transmitted Disease: No HIV/AIDS: No Genitourinary: No Gastrointestinal: Yes Chronic Diarrhea Musculoskeletal: Yes Arthritis Endocrine: No HEENT: No Cancer: No Psychosocial: No Integumentary: No Blood Disorders: No Physical Exam Vital Signs - First Documented 02/28/20 12:15 Temp 35.4 Pulse 75 Resp 16 B/P (MAP) 170/81 (110) Pulse Ox 100 Capillary Refill : Less Than 3 Seconds Height: 6'5.50" Weight: 215lbs. 0oz. [id number]; 26.00 BMI Method:Stated General Appearance: WD/WN, no apparent distress HEENT: normal ENT inspection, pharynx normal Neck: non-tender, full range of motion, supple, normal inspection Respiratory: chest non-tender, no respiratory distress, no accessory muscle use, rales (bilateral bases of lungs) Cardiovascular: normal peripheral pulses, regular rate, rhythm Gastrointestinal: normal bowel sounds, soft, no pulsatile mass Extremities: normal range of motion, normal capillary refill, pedal edema (1+ BLE to knees) Neurologic/Psychiatric: dressage judge II-XII nml as tested, alert, normal mood/affect, oriented x 3 Skin: normal color, warm/dry Progress/Results/Core Measures Suspected Sepsis Recent Fever Within 48 Hours: No Infection Criteria Present: Suspected New Infection New/Unexplained Altered Menta: No Sepsis Screen: No Definite Risk SIRS Temperature: Pulse: 75 Respiratory Rate: 16 Laboratory Tests 02/28/20 12:21: White Blood Count 5.2 Blood Pressure 170 /81 Mean: 110 Laboratory Tests 02/28/20 12:21: Creatinine 1.16, INR Comment 1.7H, Platelet Count 157, Total Bilirubin 1.2H Results/Orders Lab Results Laboratory Tests Test 02/28/20 12:21 Range/Units White Blood Count 5.2 4.3-11.0 10^3/uL Red Blood Count 4.03 L 4.35-5.85 10^6/uL Hemoglobin 13.5 13.3-17.7 G/DL Hematocrit 40 40-54 % Mean Corpuscular Volume 100 H 80-99 FL Mean Corpuscular Hemoglobin 33 25-34 PG Mean Corpuscular Hemoglobin Concent 33 32-36 G/DL Red Cell Distribution Width 13.2 10.0-14.5 % Platelet Count 157 130-400 10^3/uL Mean Platelet Volume 10.4 7.4-10.4 FL Immature Granulocyte % (Auto) 0 % Neutrophils (%) (Auto) 54 42-75 % Lymphocytes (%) (Auto) 24 12-44 % Monocytes (%) (Auto) 8 0-12 % Eosinophils (%) (Auto) 14 H 0-10 % Basophils (%) (Auto) 0 0-10 % Neutrophils # (Auto) 2.8 1.8-7.8 X 10^3 Lymphocytes # (Auto) 1.2 1.0-4.0 X 10^3 Monocytes # (Auto) 0.4 0.0-1.0 X 10^3 Eosinophils # (Auto) 0.7 H 0.0-0.3 10^3/uL Basophils # (Auto) 0.0 0.0-0.1 10^3/uL Immature Granulocyte # (Auto) 0.0 0.0-0.1 10^3/uL Neutrophils % (Manual) 45 % Lymphocytes % (Manual) 34 % Monocytes % (Manual) 6 % Eosinophils % (Manual) 13 % Basophils % (Manual) 0 % Band Neutrophils 2 % Prothrombin Time 20.3 H 12.2-14.7 SEC INR Comment 1.7 H 0.8-1.4 Activated Partial Thromboplast Time 45 H 24-35 SEC Sodium Level 141 135-145 MMOL/L Potassium Level 4.1 3.6-5.0 MMOL/L Chloride Level 108 H 98-107 MMOL/L Carbon Dioxide Level 20 L 21-32 MMOL/L Anion Gap 13 5-14 MMOL/L Blood Urea Nitrogen 20 H 7-18 MG/DL Creatinine 1.16 0.60-1.30 MG/DL Estimat Glomerular Filtration Rate 59 BUN/Creatinine Ratio 17 Glucose Level 103 70-105 MG/DL Calcium Level 9.5 8.5-10.1 MG/DL Corrected Calcium 9.7 8.5-10.1 MG/DL Magnesium Level 1.8 1.6-2.4 MG/DL Total Bilirubin 1.2 H 0.1-1.0 MG/DL Aspartate Amino Transf (AST/SGOT) 25 5-34 U/L Alanine Aminotransferase (ALT/SGPT) 16 0-55 U/L Alkaline Phosphatase 166 H 40-136 U/L Troponin I < 0.30 <0.30 NG/ML Pro-B-Type Natriuretic Peptide 2522.0 H <75.0 PG/ML Total Protein 6.9 6.4-8.2 GM/DL Albumin 3.7 3.2-4.5 GM/DL My Orders Orders - CAIT NOGUEIRA MD Chest 1 View Ap/Pa Only (02/28/20 12:17) Cbc With Automated Diff (02/28/20 12:48) Magnesium (02/28/20 12:48) Ekg Tracing (02/28/20 12:48) Comprehensive Metabolic Panel (02/28/20 12:48) Protime With Inr (02/28/20 12:48) Partial Thromboplastin Time (02/28/20 12:48) O2 (02/28/20 12:48) Monitor-Rhythm Ecg Trace Only (02/28/20 12:48) Ed Iv/Invasive Line Start (02/28/20 12:48) Troponin I Fs (02/28/20 12:48) Probnp Fs (02/28/20 12:48) Manual Differential (02/28/20 12:21) Vital Signs/I&O 02/28/20 02/28/20 12:15 14:27 Temp 35.4 Pulse 75 63 Resp 16 20 B/P (MAP) 170/81 (110) 147/59 Pulse Ox 100 98 Capillary Refill : Less Than 3 Seconds Blood Pressure Mean: 110 Progress Note #1: Progress Note check labs with chest x-ray and electrocardiogram. With his concern for shortness of breath and having swelling also will obtain cardiac enzymes with BNP Progress Note #2: Progress Note chest x-ray shows small amount of effusion bilaterally. His EKG was paced with some PVCs. He has no acute significant abnormality on his CBC or chemistry except he does have an elevated BNP to go along with some heart failure consistent with his chest x-ray and physical exam of the edema in his lower extremities. advised patient of the findings and he stated that he had not been told he had heart failure before. However his oxygen saturation was 98-100% on room air. He was not working hard to breathe. Will have him try a low-dose of diuretic with potassium. Check with the clinic about obtaining an echocardiogram and possible cardiology consult. If worsens or not improving he may need inpatient treatment but for now the outpatient workup and possible medication treatment should be manageable. ECG Initial ECG Impression Date: Feb 28, 2020 Initial ECG Impression Time: 12:02 Initial ECG Rate: 63 Initial ECG Comparisson: No Previous ECG Available Comment paced rhythm with occasional PVCs. Heart rate of 63 beats for minute. QT interval 447 ms with a QTc interval 458 ms. There is no acute ST elevation. There is no prior tracing immediately available for comparison. Diagnostic Imaging Diagonstic Imaging: Xray Plain Films/CT/US/NM/MRI: chest Comments [facility] [place], [place] NAME: SUMAN[facility] REC#: [id number] PT STATUS: REG ER : 1930 PHYSICIAN: CAIT NOGUEIRA MD ADMIT DATE: 02/28/20/ER FS Signed Date of Exam:02/28/20 CHEST 1 VIEW AP/PA ONLY CHEST 1 VIEW AP/PA ONLY Indication: Shortness of breath and wheezing. Comparison: 04/07/2019 Findings: Unchanged cardiomegaly with left pectoral transvenous pacemaker. Chronic central vascular redistribution. No pulmonary consolidation or mass. Posterior lower lobes are poorly evaluated by portable radiography. Mild interlobular septal thickening may be present. Trace bilateral pleural effusions. IMPRESSION: Imaging features raise possibility of mild pulmonary edema with trace bilateral pleural effusions. Dictated by: Dictated on workstation # [id number] Dict: 02/28/20 1233 Trans: 02/28/20 1252 CVB [id number] Interpreted by: AMBAR STILES MD Electronically signed by: AMBAR STILES MD 02/28/20 1252 Departure Impression Primary Impression: Congestive heart failure Qualified Codes: I50.9 - Heart failure, unspecified Additional Impressions: Pedal edema Shortness of breath Disposition: HOME, SELF-CARE Condition: Stable Departure-Patient Inst. Decision time for Depature: 14:05 Referrals: SHAHLA GARDNER MD (PCP/Family) Primary Care Physician Patient Instructions: Shortness of Breath (Dyspnea) (DC), Heart Failure, Adult (DC) Add. Discharge Instructions: Take the water pill and potassium to help get the fluid off your lungs and legs. Check with Dr. Gardner over the phone to follow up with Cardiology and get an Echocardiogram and see if they want you to take any different medicine for your swelling and fluid on your lungs. All discharge instructions reviewed with patient and/or family. Voiced u nderstanding. Scripts Potassium Chloride (Potassium Chloride) 10 Meq Capsule.er 10 MEQ PO DAILY for 7 Days, #7 CAP 0 Refills Prov: CAIT NOGUEIRA MD 02/28/20 Furosemide (Furosemide) 20 Mg Tablet 20 MG PO DAILY for edema for 7 Days, #7 TAB 0 Refills Prov: CAIT NOGUEIRA MD 02/28/20 CAIT NOGUEIRA MD Feb 28, 2020 12:48
[2020-02-28 13:00] LABS: HEMATOCRIT 40 % (40-54); HEMOGLOBIN 13.5 G/DL (13.3-17.7); MEAN CORPUSCULAR HEMOGLOBIN 33 PG (25-34); MEAN CORPUSCULAR HGB CONC 33 G/DL (32-36); MEAN CORPUSCULAR VOLUME 100 FL (80-99); MEAN PLATELET VOLUME 10.4 FL (7.4-10.4); PLATELET COUNT 157 10^3/uL (130-400); WHITE BLOOD COUNT 5.2 10^3/uL (4.3-11.0)
[2020-02-28 13:01] LABS: BASOPHILS % (AUTO) 0 % (0-10); EOSINOPHILS # (AUTO) 0.7 10^3/uL (0.0-0.3); EOSINOPHILS % (AUTO) 14 % (0-10); LYMPHOCYTES # (AUTO) 1.2 X 10^3 (1.0-4.0); LYMPHOCYTES % (AUTO) 24 % (12-44); MONOCYTES # (AUTO) 0.4 X 10^3 (0.0-1.0); MONOCYTES % (AUTO) 8 % (0-12); NEUTROPHILS # (AUTO) 2.8 X 10^3 (1.8-7.8); NEUTROPHILS % (AUTO) 54 % (42-75)
[2020-02-28 13:06] LABS: INR 1.7 (0.8-1.4); PROTHROMBIN TIME PATIENT 20.3 SEC (12.2-14.7)
[2020-02-28 13:21] LABS: BILIRUBIN,TOTAL 1.2 MG/DL (0.1-1.0); CALCIUM 9.5 MG/DL (8.5-10.1); CREATININE SERUM 1.16 MG/DL (0.60-1.30); MAGNESIUM 1.8 MG/DL (1.6-2.4); POTASSIUM 4.1 MMOL/L (3.6-5.0)
[2020-02-28 13:22] LABS: ALBUMIN 3.7 GM/DL (3.2-4.5); TOTAL PROTEIN 6.9 GM/DL (6.4-8.2)
[2020-02-28 13:33] LABS: BAND NEUTROPHILS 2 %; BASOPHILS % (MANUAL) 0 %; EOSINOPHILS % (MANUAL) 13 %; LYMPHOCYTES % (MANUAL) 34 %; MONOCYTES % (MANUAL) 6 %; NEUTROPHILS % (MANUAL) 45 %
[2020-02-28] MEDS ORDERED: POTA10CA43 PO (14:10)
[2020-02-28] MEDS ORDERED: FURO20TA4 PO (14:10)
[2020-02-28 14:27] VITALS: BP 147/59
== END 2020-02-28 14:32 | disposition home or self-care (01) ==
LOC: EDUNIT# 11:45 → ER FS 11:47
DX: I50.9 Heart failure, unspecified (principal); R60.9 Edema, unspecified; R06.02 Shortness of breath; I48.91 Unspecified atrial fibrillation; Z95.1 Presence of aortocoronary bypass graft; Z95.0 Presence of cardiac pacemaker; Z79.82 Long term (current) use of aspirin; Z79.01 Long term (current) use of anticoagulants
CPT/HCPCS: 36415; 71045; 80053; 83735; 83880; 84484; 85007; 85027; 85610; 85730; 93005

== ENCOUNTER 2020-06-17 08:06 | Observation (INO) | payer MEDICARE, OTHER ==
[~2020-06-17] VITALS: Ht 195 cm; Wt 97.2 kg
[~2020-06-17 08:06] MED LIST changes: +ASPIRIN 81 MG CHEW (CHILDREN'S ASA) ONE; +FURO20TA4 PO; +NITROGLYCERIN 0.4 MG SL TABS BTL 25'S SL ONE; +POTA10CA43 PO
[2020-06-17] MEDS ORDERED: ASPIRIN 81 MG CHEW (CHILDREN'S ASA) PO ONE (08:15)
[2020-06-17] MEDS ORDERED: NITROGLYCERIN 0.4 MG SL TABS BTL 25'S SL PRN ×2 (08:15→12:45)
--- NOTE | 2020-06-17 08:25 | ED Chest Pain ---
General Stated Complaint: CP,SOB Source: patient Exam Limitations: no limitations History of Present Illness Date Seen by Provider: Jun 17, 2020 Time Seen by Provider: 08:03 Initial Comments The patient presents to the ER by private conveyance from home with chief complaint of chest pain left of the sternum, nonradiating 6 out of 10 pressure and pain unrelenting that woke him from sleep at 4:00 this morning. It has slowly tapered off. It is not worse with deep inspiration, palpation or exercise/walking. He had to take his daughter to dialysis and since his pain was persistent they told him to come to the ER. He has a history of four-vessel CABG followed by Out-of-town cardiology. Primary care by Dr. Gardner. He has a history of hyperlipidemia but denies hypertension or diabetes. He is not a smoker or drinker. He denies a history of heart burn/indigestion. He is not having any nausea sweats fevers chills cough but he does endorse shortness of air. He took 162 mg of aspirin and the rest of his morning medications before coming in. Allergies and Home Medications Allergies Coded Allergies: No Known Drug Allergies (Unverified , 07/29/18) Home Medications Aspirin 81 Mg Tablet.dr, 81 MG PO DAILY, (Reported) Atorvastatin Calcium 10 Mg Tablet, 10 MG PO HS, (Reported) Azithromycin 250 Mg Tablet, 250 MG PO UD TAKE 2 TABLETS ON DAY ONE THEN TAKE 1 TABLET DAILY FOR FOUR MORE DAYS Prescribed by: CAIT ALANIZRT on 05/09/19 1057 Calcium Carbonate 500 Mg Tablet, 500 MG PO DAILY, (Reported) Fluticasone Propionate 9.9 Ml [place].susp, 2 SPRAY NS DAILY 2 SPRAYS PER NOSTRIL DAILY X 2 DAYS THEN 1 SPRAY DAILY Prescribed by: CAIT ALANIZRT on 05/09/19 1057 Furosemide 20 Mg Tablet, 20 MG PO DAILY Prescribed by: CAIT ALANIZRT on 02/28/20 1410 Multivit-Min/Folic/Vit K/Lycop 1 Each Tablet, 1 EACH PO DAILY, (Reported) Potassium Chloride 10 Meq Capsule.er, 10 MEQ PO DAILY Prescribed by: CAIT ALANIZRT on 02/28/20 1410 Rivaroxaban 20 Mg Tablet, 20 MG PO DAILY, (Reported) Zinc 50 Mg Tablet, 50 MG PO DAILY, (Reported) Patient Home Medication List Home Medication List Reviewed: Yes Review of Systems Review of Systems Constitutional: No chills, No diaphoresis, No fever, No malaise EENTM: No Blurred Vision, No Double Vision Respiratory: Denies Cough; Shortness of Air Cardiovascular: See HPI, Chest Pain; Denies Edema; Irregular Heart Rate Gastrointestinal: Denies Abdominal Pain, Denies Diarrhea, Denies Nausea Genitourinary: Denies Burning, Denies Discharge Musculoskeletal: No back pain All Other Systems Reviewed Negative Unless Noted: Yes Past Efjrzem-Vwpobv-Xtegfw Hx Patient Social History Alcohol Use: Denies Use Drug of Choice: Denies Smoking Status: Never a Smoker 2nd Hand Smoke Exposure: No Recent Hopitalizations: No Immunizations Up To Date Tetanus Booster (TDap): Unknown Date of Influenza Vaccine: Dec 16, 2018 Seasonal Allergies Seasonal Allergies: No Past Medical History Surgeries: Yes (shoulder, back sx, toes amputated) CABG, Pacemaker Respiratory: No Cardiac: Yes Atrial Fibrillation Neurological: No Sexually Transmitted Disease: No HIV/AIDS: No Genitourinary: No Gastrointestinal: Yes Chronic Diarrhea Musculoskeletal: Yes Arthritis Endocrine: No HEENT: No Cancer: No Psychosocial: No Integumentary: No Blood Disorders: No Physical Exam Vital Signs Vital Signs - First Documented 06/17/20 08:06 Temp 37.0 Pulse 75 Resp 16 B/P (MAP) 145/88 (107) Pulse Ox 96 O2 Delivery Room Air Capillary Refill : Height, Weight, BMI Height: 6'5.50" Weight: 215lbs. 0oz. 97.134828yq; 26.00 BMI Method:Stated General Appearance: WD/WN, Mild Distress HEENT: PERRL/EOMI, Pharynx Normal, Moist Mucous Membranes Neck: Full Range of Motion, Normal Inspection Respiratory: Chest Non Tender, Lungs Clear, Normal Breath Sounds, No Accessory Muscle Use, No Respiratory Distress Cardiovascular: Normal Peripheral Pulses, Irregularly Irregular Gastrointestinal: No Organomegaly, Non Tender, Soft Extremity: Normal Capillary Refill, Normal Inspection, No Pedal Edema Neurologic/Psychiatric: Alert, Oriented x3, No Motor/Sensory Deficits Skin: Normal Color, Warm/Dry Progress/Results/Core Measures Results/Orders Lab Results Laboratory Tests Test 06/17/20 08:05 Range/Units White Blood Count 4.9 4.3-11.0 10^3/uL Red Blood Count 4.17 L 4.30-5.52 10^6/uL Hemoglobin 13.8 13.3-17.7 g/dL Hematocrit 42 40-54 % Mean Corpuscular Volume 100 H 80-99 fL Mean Corpuscular Hemoglobin 33 25-34 pg Mean Corpuscular Hemoglobin Concent 33 32-36 g/dL Red Cell Distribution Width 13.7 10.0-14.5 % Platelet Count 126 L 130-400 10^3/uL Mean Platelet Volume 10.4 9.0-12.2 fL Immature Granulocyte % (Auto) 0 % Neutrophils (%) (Auto) 41 L 42-75 % Lymphocytes (%) (Auto) 36 12-44 % Monocytes (%) (Auto) 10 0-12 % Eosinophils (%) (Auto) 12 H 0-10 % Basophils (%) (Auto) 1 0-10 % Neutrophils # (Auto) 2.0 1.8-7.8 10^3/uL Lymphocytes # (Auto) 1.8 1.0-4.0 10^3/uL Monocytes # (Auto) 0.5 0.0-1.0 10^3/uL Eosinophils # (Auto) 0.6 H 0.0-0.3 10^3/uL Basophils # (Auto) 0.0 0.0-0.1 10^3/uL Immature Granulocyte # (Auto) 0.0 0.0-0.1 10^3/uL Neutrophils % (Manual) 39 % Lymphocytes % (Manual) 40 % Monocytes % (Manual) 12 % Eosinophils % (Manual) 8 % Basophils % (Manual) 1 % Band Neutrophils % Blood Morphology Comment NORMAL Prothrombin Time 28.6 H 12.2-14.7 SEC INR Comment 2.7 H 0.8-1.4 Activated Partial Thromboplast Time 47 H 24-35 SEC D-Dimer 0.56 H 0.00-0.49 UG/ML Sodium Level 141 135-145 MMOL/L Potassium Level 4.5 3.6-5.0 MMOL/L Chloride Level 107 98-107 MMOL/L Carbon Dioxide Level 23 21-32 MMOL/L Anion Gap 11 5-14 MMOL/L Blood Urea Nitrogen 28 H 7-18 MG/DL Creatinine 1.30 0.60-1.30 MG/DL Estimat Glomerular Filtration Rate 52 BUN/Creatinine Ratio 22 Glucose Level 85 70-105 MG/DL Calcium Level 9.7 8.5-10.1 MG/DL Corrected Calcium 9.6 8.5-10.1 MG/DL Magnesium Level 1.9 1.6-2.4 MG/DL Total Bilirubin 0.9 0.1-1.0 MG/DL Aspartate Amino Transf (AST/SGOT) 28 5-34 U/L Alanine Aminotransferase (ALT/SGPT) 20 0-55 U/L Alkaline Phosphatase 121 40-136 U/L Myoglobin 128.9 H 10.0-92.0 NG/ML Troponin I < 0.028 <0.028 NG/ML Total Protein 7.6 6.4-8.2 GM/DL Albumin 4.1 3.2-4.5 GM/DL Lipase 23 8-78 U/L My Orders Orders - PAUL RICHARDSON Nitroglycerin 0.4 Mg Btl 25's (Nitrostat (06/17/20 08:03) Aspirin Chewable Tablet (Baby Aspirin Ch (06/17/20 08:03) Cbc With Automated Diff (06/17/20 08:12) Magnesium (06/17/20 08:12) Chest 1 View, Ap/Pa Only (06/17/20 08:12) Ekg Tracing (06/17/20 08:12) Comprehensive Metabolic Panel (06/17/20 08:12) Myoglobin Serum (06/17/20 08:12) Protime With Inr (06/17/20 08:12) Partial Thromboplastin Time (06/17/20 08:12) O2 (06/17/20 08:12) Monitor-Rhythm Ecg Trace Only (06/17/20 08:12) Lipid Panel (06/18/20 06:00) Ed Iv/Invasive Line Start (06/17/20 08:12) Lipase (06/17/20 08:12) Fibrin Degradation Products (06/17/20 08:12) Troponin I (06/17/20 08:12) Nitroglycerin 0.4 Mg Btl 25's (Nitrostat (06/17/20 08:15) Aspirin Chewable Tablet (Baby Aspirin Ch (06/17/20 08:15) Manual Differential (06/17/20 08:05) Medications Given in ED Current Medications Medications Dose Ordered Sig/Azar Route Start Time Stop Time Status Last Admin Dose Admin Aspirin 162 mg ONCE ONCE PO 06/17/20 08:15 06/17/20 08:16 DC 06/17/20 08:17 162 MG Vital Signs/I&O 06/17/20 08:06 Temp 37.0 Pulse 75 Resp 16 B/P (MAP) 145/88 (107) Pulse Ox 96 O2 Delivery Room Air Progress Progress Note #1: Time: 08:18 Progress Note Suspicious for acute coronary syndrome/unstable angina. 4 hours after pain started he presents and will have a troponin and even if it is undetectable he would still have a heart score of 5 points.High risk; 12-65% 30-day MACE. Admit to hospital or observation. Further testing indicated. 162 mg of aspirin again to be administered and if he develops any more chest pain we will give him nitroglycerin. We will get a D-dimer however he is not t achycardic nor is he having low oxygen sats just endorsing dyspnea. Progress Note #2: Time: 08:46 Progress Note Troponins negative, heart score is 5 points, discussed with patient staying for serial troponins and he agrees. D-dimer ruled out pulmonary embolism based on age. 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 He also would like to have a doughnut batter mixer visit him during his hospital stay since it is Good Saturday. Initial ECG Impression Date: Jun 17, 2020 Initial ECG Impression Time: 08:07 Initial ECG Rate: 84 Initial ECG Intervals: QT (530) Initial ECG Impression: Nonspecific Changes Comment Atrial fibrillation with a paced ventricular rhythm. Diagnostic Imaging Diagonstic Imaging: Xray Plain Films/CT/US/NM/MRI: chest Comments No acute cardiopulmonary process on 1 view chest x-ray. The pleural effusion from prior x-ray has resolved. Reviewed: Reviewed by Me Departure Communication (Admissions) Time/Spoke to Admitting Phy: 09:35 Discussed the case with Dr. Mendieta, internal medicine and he agrees to observe the patient with consultation to cardiology. Time/Spoke to Consulting Phy: 08:[address] Delgado and he agrees to consult. Since he already received Xarelto this morning we will just give him 300 mg of Plavix in addition to the aspirin. Echocardiogram today if possible. Impression Primary Impression: Unstable angina Disposition: ADMITTED INPATIENT Condition: Stable Admissions Decision to Admit Reason: Admit from ER (General) Decision to Admit/Date: Jun 17, 2020 Time/Decision to Admit Time: 08:28 Departure-Patient Inst. Referrals: SHAHLA GARDNER MD (PCP/Family) Primary Care Physician PAUL RICHARDSON Jun 17, 2020 08:25
[2020-06-17 08:30] LABS: BASOPHILS % (AUTO) 1 % (0-10); HEMOGLOBIN 13.8 g/dL (13.3-17.7); LYMPHOCYTES % (AUTO) 36 % (12-44); MONOCYTES % (AUTO) 10 % (0-12); NEUTROPHILS % (AUTO) 41 % (42-75)
[2020-06-17 08:32] LABS: EOSINOPHILS # (AUTO) 0.6 10^3/uL (0.0-0.3); EOSINOPHILS % (AUTO) 12 % (0-10); HEMATOCRIT 42 % (40-54); LYMPHOCYTES # (AUTO) 1.8 10^3/uL (1.0-4.0); MEAN CORPUSCULAR HEMOGLOBIN 33 pg (25-34); MEAN CORPUSCULAR HGB CONC 33 g/dL (32-36); MEAN CORPUSCULAR VOLUME 100 fL (80-99); MEAN PLATELET VOLUME 10.4 fL (9.0-12.2); MONOCYTES # (AUTO) 0.5 10^3/uL (0.0-1.0); PLATELET COUNT 126 10^3/uL (130-400); WHITE BLOOD COUNT 4.9 10^3/uL (4.3-11.0)
[2020-06-17 08:34] LABS: INR 2.7 (0.8-1.4); PROTHROMBIN TIME PATIENT 28.6 SEC (12.2-14.7)
[2020-06-17 08:38] LABS: ALBUMIN 4.1 GM/DL (3.2-4.5); BILIRUBIN,TOTAL 0.9 MG/DL (0.1-1.0); CALCIUM 9.7 MG/DL (8.5-10.1); CREATININE SERUM 1.3 MG/DL (0.60-1.30); MAGNESIUM 1.9 MG/DL (1.6-2.4); POTASSIUM 4.5 MMOL/L (3.6-5.0); TOTAL PROTEIN 7.6 GM/DL (6.4-8.2)
[2020-06-17 08:43] LABS: BASOPHILS % (MANUAL) 1 %; EOSINOPHILS % (MANUAL) 8 %; LYMPHOCYTES % (MANUAL) 40 %; MONOCYTES % (MANUAL) 12 %; NEUTROPHILS % (MANUAL) 39 %; RBC MORPH NORMAL
--- NOTE | 2020-06-17 08:58 | Diagnostic Imaging Report ---
INDICATION: Chest pain COMPARISON: 02/28/2020 FINDINGS: Single frontal view of the chest demonstrates mild cardiomegaly. Pulmonary vasculature however is within normal limits. The lungs are well aerated and clear. No large pleural effusion or pneumothorax is seen. The visualized osseous structures show no acute abnormalities. Left-sided single-lead pacemaker and sternotomy wires noted. Note is also made of calcified aortic atherosclerosis. IMPRESSION: 1. Mild cardiomegaly, but no evidence of failure or focal infiltrate. Dictated by: Dictated on workstation # [id number]
[2020-06-17] MEDS ORDERED: CLOPIDOGREL 300 MG (PLAVIX) TABLET PO ONE (09:45)
[2020-06-17 11:00] VITALS: BP 154/82
[2020-06-17] MEDS ORDERED: CATHETER FLUSH 10 ML SYR IV PRN (12:45)
[2020-06-17] MEDS ORDERED: ANTACID SUSP 30 ML UDC (MYLANTA) PO PRN (12:45)
[2020-06-17] MEDS ORDERED: ACETAMINOPHEN 325 MG TABLET PO PRN (12:45)
[2020-06-17] MEDS ORDERED: morphine INJ 4 MG/ML 1 ML (VIAL/SYRINGE) IV PRN (12:45)
[2020-06-17] MEDS ORDERED: ONDANSETRON 4 MG/2 ML (SDV) Z0FRAN IVP PRN (12:45)
[2020-06-17] MEDS ORDERED: FURO20TA4 PO ×2 (13:08→13:11)
[2020-06-17] MEDS ORDERED: POTA10TA6 PO (13:10)
[2020-06-17] MEDS ORDERED: ASPI-1238 PO (13:10)
[2020-06-17] MEDS ORDERED: ATOR40TA70 PO (13:10)
[2020-06-17] MEDS ORDERED: FLUT16SP22 NSEACH (13:10)
--- NOTE | 2020-06-17 15:23 | Consultation-Cardiology ---
HPI-Cardiology Cardiology Consultation: Date of Consultation 06/17/20 Date of Admission Attending Physician Concepcion Mendieta MD Admitting Physician Carolyn Davidson MD Consulting Physician Lien DELGADO MD HPI: Time Seen by a Provider: 14:15 Chief Complaint: Chest discomfort This is 89-year-old gentleman with history of CABG. Pacemaker. He follows with cardiology in [place]. Presents with chest pain, nonradiating, moderate intensity. 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 No other associated symptoms. Patient has history of hyperlipidemia but denies hypertension and diabetes. Does not smoke. Review of Systems-Cardiology Review of Systems Constitutional: As described under HPI; No As described under HPI, No no symptoms reported, No chills, No fever, No lightheadedness Eyes: No As described under HPI, No no symptoms reported, No blindness, No blurred vision, No contact lenses, No drainage, No decreased acuity, No foreign body sensation, No pain, No vision change Ears/Nose/Throat: No As described under HPI, No no symptoms reported, No chronic hearing loss, No ear discharge, No ear pain, No nasal drainage, No ulcerations Respiratory: No no symptoms reported; As described under HPI; No As described under HPI, No cough, No orthopnea, No shortness of breath, No SOB with excertion Cardiovascular: No no symptoms reported; As described under HPI; No As described under HPI; chest pain; No edema, No irregular heart rate, No lightheadedness, No palpitations Gastrointestinal: No no symptoms reported, No As described under HPI, No abdomen distended, No abdominal pain, No blood streaked bowels, No constipation, No diarrhea, No nausea, No vomiting, No stool coloration changes Genitourinary: No As described under HPI, No burning, No dysuria, No discharge, No frequency, No flank pain, No hematuria, No urgency Skin: No rash, No skin related problems, No ulcerations Psychiatric/Neurological: No anxiety, No depression, No seizure, No focal weakness, No syncope Hematologic: No bleeding abnormalities All Other Systems Reviewed Negative Unless Noted: Yes ZKL-Lnbnol-Fhlewo Hx Patient Social History Smoking Status: Former Smoker 2nd Hand Smoke Exposure: No Have you traveled recently?: No Alcohol Use?: No Pt feels they are or have been: No Immunizations Up To Date Tetanus Booster (TDap): Unknown Date of Influenza Vaccine: Dec 16, 2018 Past Medical History PMH As described under Assessment. Allergies and Home Medications Allergies Coded Allergies: No Known Drug Allergies (Unverified , 07/29/18) Home Medications Aspirin 81 Mg Tablet.dr, 81 MG PO DAILY, (Reported) Atorvastatin Calcium 40 Mg Tablet, 40 MG PO DAILY, (Reported) Fluticasone Propionate 16 Gm [place].susp, 1 SPRAY NSEACH HS, (Reported) Furosemide 20 Mg Tablet, 20 MG PO DAILY, (Reported) Multivit-Min/Folic/Vit K/Lycop 1 Each Tablet, 1 EACH PO DAILY, (Reported) Potassium Chloride 10 Meq Tablet.er, 10 MEQ PO DAILY, (Reported) Rivaroxaban 20 Mg Tablet, 20 MG PO DAILY, (Reported) Zinc 50 Mg Tablet, 50 MG PO DAILY, (Reported) Patient Home Medication List Home Medication List Reviewed: Yes Physical Exam-Cardiology Physical Exam Vital Signs/I&O 06/17/20 06/17/20 06/17/20 06/17/20 08:06 10:24 11:00 12:43 Temp 37.0 35.9 Pulse 75 57 70 60 Resp 16 16 16 B/P (MAP) 145/88 (107) 103/70 154/82 (106) Pulse Ox 96 97 100 O2 Delivery Room Air Room Air Room Air Capillary Refill : Less Than 3 Seconds Constitutional: appears stated age, AAO x 3; No apparent distress; well- developed, well-nourished HEENT: PERRL; No discharge; hearing is well preserved, oral hygience is good; No ulceration, No xanthelasmas are seen Neck: No carotid bruit; carotid pulses are 2 + bilaterally Respiratory: chest is bilaterally symmetric, lungs clear to auscultation Cardiovascular: regular rate-rhythm, S1 and S2 Gastrointestinal: soft, audible bowel sounds; No spleenomegaly Rectal: deferred Extremities: No clubbing, No cyanosis; no lower extremity edema bilateral; No significant edema Neurologic/Psychiatric: no motor/sensory deficits, alert, normal mood/affect, oriented x 3, power is 5/5 both on sides Skin: normal color; No rash, No ulcerations Data Review Labs Laboratory Tests 06/17/20 08:05: White Blood Count 4.9, Red Blood Count 4.17L, Hemoglobin 13.8, Hematocrit 42, Mean Corpuscular Volume 100H, Mean Corpuscular Hemoglobin 33, Mean Corpuscular Hemoglobin Concent 33, Red Cell Distribution Width 13.7, Platelet Count 126L, Mean Platelet Volume 10.4, Immature Granulocyte % (Auto) 0, Neutrophils (%) (Auto) 41L, Lymphocytes (%) (Auto) 36, Monocytes (%) (Auto) 10, Eosinophils (%) (Auto) 12H, Basophils (%) (Auto) 1, Neutrophils # (Auto) 2.0, Lymphocytes # (Auto) 1.8, Monocytes # (Auto) 0.5, Eosinophils # (Auto) 0.6H, Basophils # (Auto) 0.0, Immature Granulocyte # (Auto) 0.0, Neutrophils % (Manual) 39, Lymphocytes % (Manual) 40, Monocytes % (Manual) 12, Eosinophils % (Manual) 8, Basophils % (Manual) 1, Band Neutrophils , Blood Morphology Comment NORMAL, Prothrombin Time 28.6H, INR Comment 2.7H, Activated Partial Thromboplast Time 47H, D-Dimer 0.56H, Sodium Level 141, Potassium Level 4.5, Chloride Level 107, Carbon Dioxide Level 23, Anion Gap 11, Blood Urea Nitrogen 28H, Creatinine 1.30, Estimat Glomerular Filtration Rate 52, BUN/Creatinine Ratio 22, Glucose Level 85, Calcium Level 9.7, Corrected Calcium 9.6, Magnesium Level 1.9, Total Bilirubin 0.9, Aspartate Amino Transf (AST/SGOT) 28, Alanine Aminotransferase (ALT/SGPT) 20, Alkaline Phosphatase 121, Myoglobin 128.9H, Troponin I < 0.028, Total Protein 7.6, Albumin 4.1, Lipase 23 06/17/20 13:59: Troponin I < 0.028 A/P-Cardiology Assessment/Admission Diagnosis Chest pain, CABG, Permanent pacemaker, Elevated D-dimer, Elevated INR. Plan Pain started hours before patient came to the ER. First troponin was negative. We will continue serial troponin. To rule out ACS. Echocardiogram. He was offered to be transferred to [facility] where all his records and cardiology is, However the patient refused. Continue aspirin, add Plavix. Patient is on Xarelto which we will continue. No active issues with the pacemaker. Elevated D-dimer and INR, will defer to the primary team. Thank you for your consultation. Please call me if you have any questions. Benito Delgado MD, FACP, FACC, FSCAI, FHRS, CCDS Interventional Cardiology Cardiac Electrophysiology Vascular Medicine and Endovascular Interventions Lien DELGADO MD Jun 17, 2020 15:22
[2020-06-17 16:00] VITALS: BP 147/69
[2020-06-17] MEDS ORDERED: RIVAROXABAN 20 MG TABLET (XARELTO) PO SCH (17:00)
[2020-06-17 19:53] VITALS: BP 117/55
[2020-06-17] MEDS: CATHETER FLUSH 10 ML SYR IV SCH ×2 (21:22→22:27)
--- NOTE | 2020-06-17 21:30 | History & Physical-Hospitalist ---
History of Present Illness HPI/Chief Complaint Ronan Costa is an 89 year old male with PMH CAD s/p CABG, HLD, chronic anticoagulation, who presented with chest pain. He reports that he woke up at 4 am and had pressure in his chest. He denies radiation of the pain including to his neck, jaw, and arm. He denies associated dyspnea, nausea, and diaphoresis. He denies fevers. cough, abdominal pain. He had a CABG about 30 years ago. He reports no further cardiac issues since then. 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 His chest pain is resolved at this time. Source: patient Exam Limitations: no limitations Date Seen 06/17/20 Time Seen by a Provider: 12:15 Attending Physician Matty Ceron MD PCP Carolyn Davidson MD Referring Physician Date of Admission Jun 17, 2020 at 09:40 Home Medications & Allergies Home Medications Reviewed patient Home Medication Reconciliation performed by pharmacy medication reconciliations mobile lab technician and/or nursing. Patients Allergies have been reviewed. Allergies Allergies Coded Allergies No Known Drug Allergies (Unverified07/29/18) Patient Social History Tobacco Use?: No Smoking Status: Former Smoker E-Cig and/or Vaping Freq: Former User Substance use?: No DRANK A BEER 1 WEEK AGO Substance frequency: Rarely Alcohol Use?: No Pt stated abuse/neglect: No Immunizations Up To Date Influenza Vaccine Up-to-Date: Yes; Up-to-Date First/Initial COVID19 Vaccinat: May Second COVID19 Vaccination [place]: May Current Status Do you have an Advance Directi: Yes Advance Directive Location: Home Communicates: Verbally Primary Language: Cymro Preferred Spoken Language: Cymro Is interpretation needed?: No Sensory deficits: Vision impairment Implanted or Applied Medical D: Pacemaker Review of Systems Constitutional: no symptoms reported EENTM: no symptoms reported Respiratory: no symptoms reported Cardiovascular: chest pain Gastrointestinal: no symptoms reported Genitourinary: no symptoms reported Musculoskeletal: no symptoms reported Skin: no symptoms reported Psychiatric/Neurological: No Symptoms Reported Physical Exam Physical Exam Vital Signs Vital Signs - First Documented 06/17/20 08:06 Temp 37.0 Pulse 75 Resp 16 B/P (MAP) 145/88 (107) Pulse Ox 96 O2 Delivery Room Air Capillary Refill : Less Than 3 Seconds Height, Weight, BMI Height: 6'5.50" Weight: 215lbs. 0oz. [id number]; 163.93 BMI Method:Stated General Appearance: No Apparent Distress, WD/WN HEENT: PERRL/EOMI, Pharynx Normal Neck: Normal Inspection, Supple Respiratory: Lungs Clear, Normal Breath Sounds, No Respiratory Distress Cardiovascular: Regular Rate, Rhythm, No Edema, No Murmur Gastrointestinal: Normal Bowel Sounds, Non Tender, Soft Extremity: Normal Inspection, Non Tender, No Pedal Edema Neurologic/Psychiatric: Alert, Oriented x3, No Motor/Sensory Deficits, Normal Mood/Affect Skin: Normal Color, Warm/Dry Results Results/Procedures Labs Laboratory Tests 06/17/20 08:05 Patient resulted labs reviewed. Imaging: Reviewed Imaging Report Assessment/Plan Admission Diagnosis Chest pain Admission Status: Observation Assessment and Plan Chest pain CAD s/p CABG HLD Chronic anticoagulation EKG and troponins unremarkable Given ASA and Plavix Continue statin Continue Xarelto Trend troponin Cardiology consulted Diagnosis/Problems Diagnosis/Problems (1) Chest pain Status: Acute Supervisory-Addendum Brief Verification & Attestation Participated in pt care: other Personally performed: other Care discussed with: other Procedures: n/a n/a MATTY CERON MD Jun 17, 2020 21:30
[2020-06-17 23:55] VITALS: BP 120/68
[2020-06-18 04:00] VITALS: BP 121/62
[2020-06-18 06:15] LABS: BUN/CREATININE RATIO 21; CALCIUM 9.1 MG/DL (8.5-10.1); CARBON DIOXIDE 21 MMOL/L (21-32); CHLORIDE 108 MMOL/L (98-107); CHOLESTEROL 98 MG/DL (< 200); CREATININE SERUM 1.09 MG/DL (0.60-1.30); GFR ESTIMATED > 60; GLUCOSE 85 MG/DL (70-105); HDL CHOLESTEROL 35 MG/DL (40-60); POTASSIUM 4.2 MMOL/L (3.6-5.0); SODIUM 139 MMOL/L (135-145); TRIGLYCERIDES 65 MG/DL (<150); VLDL CHOLESTEROL 13 MG/DL (5-40)
[2020-06-18] MEDS: CATHETER FLUSH 10 ML SYR IV SCH (06:29)
[2020-06-18 08:00] VITALS: BP 161/84
[2020-06-18] MEDS ORDERED: ASPIRIN 81 MG CHEW (CHILDREN'S ASA) PO SCH (09:00)
[2020-06-18] MEDS ORDERED: RIVAROXABAN 20 MG TABLET (XARELTO) PO SCH (09:00)
[2020-06-18 12:00] VITALS: BP 149/74
--- NOTE | 2020-06-18 14:16 | Cardiology Progress Note ---
Cardiology SOAP Progress Note Subjective: No further chest pain. Objective: I&O/Vital Signs 06/18/20 06/18/20 06/18/20 06/18/20 04:00 07:00 08:00 12:00 Temp 36.4 36.5 36.1 Pulse 69 60 71 60 Resp 20 18 20 B/P (MAP) 121/62 (81) 161/84 (109) 149/74 (99) Pulse Ox 96 98 100 O2 Delivery Room Air Room Air Room Air 06/18/20 12:35 Pulse 61 06/18/20 00:00 Intake Total 1050 ml Output Total 1000 ml Balance 50 ml Weight (Pounds): 215 Weight (Ounces): 0 Weight (Calculated Kilograms): [id number] Constitutional: appears stated age, AAO x 3; No apparent distress; well-developed, well-nourished Respiratory: chest is bilaterally symmetric, lungs clear to auscultation Cardiovascular: regular rate-rhythm, S1 and S2 Gastrointestional: soft, audible bowel sounds; No spleenomegaly Extremities: No clubbing, No cyanosis; no lower extremity edema bilateral; No significant edema Neurologic/Psychiatric: no motor/sensory deficits, alert, normal mood/affect, oriented x 3, power is 5/5 both on sides Skin: normal color; No rash, No ulcerations Results/Procedures: Labs Laboratory Tests 06/17/20 20:05: Troponin I < 0.028 06/18/20 05:37: Sodium Level 139, Potassium Level 4.2, Chloride Level 108H, Carbon Dioxide Level 21, Anion Gap 10, Blood Urea Nitrogen 23H, Creatinine 1.09, Estimat Glomerular Filtration Rate > 60, BUN/Creatinine Ratio 21, Glucose Level 85, Calcium Level 9.1, Triglycerides Level 65, Cholesterol Level 98, LDL Cholesterol Direct 47, VLDL Cholesterol 13, HDL Cholesterol 35L A/P: Assessment/Dx: Chest pain, CABG, Permanent pacemaker, Elevated D-dimer, Elevated INR. Plan: Serial troponin x3 is negative. Continue aspirin, add Plavix. I recommended inpatient nuclear stress test on Saturday. However the patient insisted that he wants to go to [facility] for [facility] as well as tomorrow. I discussed with him and recommended that he should not do anything exertional and come back to us even if he has the slightest chest discomfort. And also follow with his primary certified adaptive physical educator in [facility] on Saturday. The patient agreed to all of the above. I discussed with the nurse as well. Patient is on Xarelto which we will continue. No active issues with the pacemaker. Elevated D-dimer and INR, will defer to the primary team. Thank you for your consultation. Please call me if you have any questions. Benito Delgado MD, FACP, FACC, FSCAI, FHRS, CCDS Interventional Cardiology Cardiac Electrophysiology Vascular Medicine and Endovascular Interventions Lien DELGADO MD Jun 18, 2020 14:16
[2020-06-18] MEDS ORDERED: CLOPIDOGREL 75 MG (PLAVIX) TABLET PO SCH (14:30)
[2020-06-18] MEDS ORDERED: CLOP75TA28 PO (15:28)
--- NOTE | 2020-06-18 15:37 | Discharge Summary ---
Discharge Summary Hospital Course Was the Problem List Reviewed?: Yes Problems/Dx: (1) Chest pain Status: Acute Hospital Course Date of Admission: Jun 17, 2020 at 09:40 Admission Diagnosis : Chest pain Family Physician/Provider: Carolyn Davidson MD Date of Discharge: 06/18/20 Discharge Diagnosis: Chest pain Hospital Course: Ronan Costa is an 89 year old male with PMH CAD s/p CABG who presented with chest pain. His initial EKG and troponin were normal. Cardiology was consulted and assisted with his care. His repeat troponins remained normal. Cardiology recommended a nuclear stress test on Saturday, but he insisted on discharging as he wanted to go to [facility]. 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 He was instructed to return with any recurrence of chest pain, dyspnea, or if he felt like he was getting worse. Labs and Pending Lab Test: Laboratory Tests 06/17/20 20:05: Troponin I < 0.028 06/18/20 05:37: Sodium Level 139, Potassium Level 4.2, Chloride Level 108H, Carbon Dioxide Level 21, Anion Gap 10, Blood Urea Nitrogen 23H, Creatinine 1.09, Estimat Glomerular Filtration Rate > 60, BUN/Creatinine Ratio 21, Glucose Level 85, Calcium Level 9.1, Triglycerides Level 65, Cholesterol Level 98, LDL Cholesterol Direct 47, VLDL Cholesterol 13, HDL Cholesterol 35L Home Meds Active Clopidogrel (Clopidogrel Bisulfate) 75 Mg Tablet 75 Mg PO DAILY 30 Days Reported Furosemide 20 Mg Tablet 20 Mg PO DAILY Aspirin EC (Aspirin) 81 Mg Tablet.dr 81 Mg PO DAILY Fluticasone Propionate 16 Gm [place].susp 1 [place] NSEACH HS Atorvastatin Calcium 40 Mg Tablet 40 Mg PO DAILY Klor-Con 10 (Potassium Chloride) 10 Meq Tablet.er 10 Meq PO DAILY Zinc 50 Mg Tablet 50 Mg PO DAILY Men's 50 Plus Multivitamin Tab (Multivit-Min/Folic/Vit K/Lycop) 1 Each Tablet 1 Each PO DAILY Xarelto (Rivaroxaban) 20 Mg Tablet 20 Mg PO DAILY Assessment/Pt Instructions Begin taking Plavix. Follow up with your getter welder on Saturday. Discharge Planning: <30 minutes discharge planning Discharge Instructions Discharge Diet: Low Sodium Diet Activity as Tolerated: Yes Discharge Physical Examination Vital Signs Vital Signs Date Time Temp Pulse Resp B/P (MAP) Pulse Ox O2 Delivery O2 Flow Rate FiO2 4/3/21 12:35 61 06/18/20 12:00 36.1 20 149/74 (99) 100 Room Air General Appearance: No Apparent Distress, WD/WN Respiratory: Lungs Clear, Normal Breath Sounds, No Respiratory Distress Cardiovascular: Regular Rate, Rhythm, No Edema, No Murmur Gastrointestinal: Normal Bowel Sounds, Non Tender, Soft Extremity: Normal Inspection, Non Tender, No Pedal Edema Skin: Normal Color, Warm/Dry Neurologic/Psychiatric: Alert, Oriented x3, No Motor/Sensory Deficits, Normal Mood/Affect Allergies: Coded Allergies: No Known Drug Allergies (Unverified , 07/29/18) Discharge Summary Date of Admission Jun 17, 2020 at 09:40 Date of Discharge Discharge Date: Jun 18, 2020 Discharge Time: 15:36 Admission Diagnosis Chest pain Consults/Procedures Consulations Cardiology Discharge Diagnosis Chest pain (1) Chest pain Status: Acute MATTY CERON MD Jun 18, 2020 15:37
== END 2020-06-18 16:07 | disposition home or self-care (01) ==
LOC: EDUNIT# 08:06 → ER 08:07 → 4TH 09:40
PROVIDERS: ADMIT Internal Medicine; ATTEND Internal Medicine
DX: R07.9 Chest pain, unspecified (principal); I25.110 Atherosclerotic heart disease of native coronary artery with unstable angina pectoris; I48.91 Unspecified atrial fibrillation; M19.90 Unspecified osteoarthritis, unspecified site; E78.5 Hyperlipidemia, unspecified; Z79.01 Long term (current) use of anticoagulants; Z79.82 Long term (current) use of aspirin; Z79.899 Other long term (current) drug therapy; Z95.0 Presence of cardiac pacemaker; Z95.1 Presence of aortocoronary bypass graft; Z87.891 Personal history of nicotine dependence
CPT/HCPCS: 71045; 80048; 80053; 80061; 83690; 83735; 83874; 84484; 85007; 85027; 85379; 85610; 85730; 93005 ×2; 93041; 99284; G0378; 36415